=== PATIENT | male | born 1965 | race Caucasian/White ===

== ENCOUNTER → 2018-03-08 13:11 | Outpatient (POV) | payer BC, SELFPAY ==
[2018-03-08 13:28] VITALS: BP 130/85; PULSE 77; RESP 18; O2SAT 95
--- NOTE | 2018-03-09 09:51 | HMH.PMCON ---
Assessment and Plan (1) Sacroiliitis Current visit: Yes Status: Chronic Category: Medical Code(s): M46.1 - Sacroiliitis, not elsewhere classified (2) Bursitis Current visit: Yes Status: Chronic Qualifiers: Bursitis location: hip Hip bursitis location: trochanteric bursitis Laterality: right Qualified Code(s): M70.61 - Trochanteric bursitis, right hip Category: Medical Code(s): M71.9 - Bursopathy, unspecified - Assessment and plan all Dx Assessment and Plan for all problems:: Schedule right SI joint injection and right greater trochanteric bursa injection for the patient. I believe given his symptomology this would be very beneficial. Patient's tried and failed physical therapy, chiropractic therapy, anti-inflammatories, medications. Patient is not on any anticoagulation therapy. We will follow-up with the patient after his injection and reassess his symptoms at that time. This note was dictated using voice recognition software and may contain errors or omissions HPI - Data of Consult Consult date: 03/09/18 Requesting Physician: Tsering Ng APRN Primary Care Provider: Ede Bone MD Family Provider: Ede Bone MD - Consult Narrative Reason for consult: Generalized pain History of present illness: Mr. Pearson is a 52 year old male who presents today for consultation in regards to his right hip pain. Patient states that all activity increases his pain while rest, heat, ice decreases his pain. Patient does have right hip numbness that spreads into his mid calf. Patient's tried and failed [place], naproxen, Tylenol, TENS therapy. Patient does go to chiropractor that seems to help him. Patient has had issues with his right hip since 2006 when he was hit with a sledgehammer during work. Patient has had neck surgery in the past by Dr. Grier however his neck pain is not as bad as his right hip pain. Patient rates his pain a 7 out of 10 today. CC: Tsering Ng APRN [facility] History I have reviewed the patient's past medical history: Yes Medical History: Reports:: Chronic Obstructive Pulmonary Disease (COPD), Hypertension Other Medical History: Reports: Arthritis - *Social History Smoking Status: Current every day smoker Tobacco Type: cigarettes # Packs/Day (cigarettes): 1 Alcohol Intake: current Occupational Status: other Housing: house Household Members: other - Psychiatric History Expresses thoughts of harming self/others: None Suicide Plan Description: No Plan *Family Hx:: Unable to obtain Review of Systems - Review of Systems ROS General: no recent weight change, no fever, no sleep disturbances Respiratory: no cough, no shortness of air, no recurring pulmonary infections Cardiovascular/Peripheral Vascular: No chest pain, No palpitations, no edema, no shortness of breath. Gastrointestinal: no incontinence, normal bowel movements reported Genitourinary: no incontinence Musculoskeletal: Right SI joint pain, right greater trochanteric bursa tenderness Psychiatric: normal mood/ affect Neurological: [denies weakness in extremities], [denies balance issues] Meds Home Medications Medication Instructions Recorded Confirmed Type albuterol sulfate HFA 90 2 puff INHALATION Q4-6H PRN 02/22/18 History mcg/actuation aerosol inhaler bupropion HCl XL 300 mg 24 hr 300 mg PO QAM 02/22/18 History tablet, extended release fluticasone 50 mcg/actuation nasal 2 spray INTRANASAL DAILY g 02/22/18 History spray,suspension hydrochlorothiazide 25 mg tablet 25 mg PO QAM 02/22/18 History meloxicam 15 mg tablet 15 mg PO DAILY PRN tab 02/22/18 History montelukast 10 mg tablet 10 mg PO QPM 02/22/18 History tamsulosin 0.4 mg capsule 0.4 mg PO DAILY cap 02/22/18 History Allergies Allergy/AdvReac Type Severity Reaction Status Date / Time No Known Allergies Allergy Unverified 08/25/17 15:24 Objective Vital signs: Pulse Resp BP P
--- NOTE | 2018-03-09 10:26 | P.CONS_ITS ---
Assessment and Plan (1) Sacroiliitis Current visit: Yes Status: Chronic Category: Medical Code(s): M46.1 - Sacroiliitis, not elsewhere classified (2) Bursitis Current visit: Yes Status: Chronic Qualifiers: Bursitis location: hip Hip bursitis location: trochanteric bursitis Laterality: right Qualified Code(s): M70.61 - Trochanteric bursitis, right hip Category: Medical Code(s): M71.9 - Bursopathy, unspecified - Assessment and plan all Dx Assessment and Plan for all problems:: Schedule right SI joint injection and right greater trochanteric bursa injection for the patient. I believe given his symptomology this would be very beneficial. Patient's tried and failed physical therapy, chiropractic therapy, anti-inflammatories, medications. Patient is not on any anticoagulation therapy. We will follow-up with the patient after his injection and reassess his symptoms at that time. This note was dictated using voice recognition software and may contain errors or omissions HPI - Data of Consult Consult date: 03/09/18 Requesting Physician: Tsering Ng APRN Primary Care Provider: Ede Bone MD Family Provider: Ede Bone MD - Consult Narrative Reason for consult: Generalized pain History of present illness: Mr. Pearson is a 52 year old male who presents today for consultation in regards to his right hip pain. Patient states that all activity increases his pain while rest, heat, ice decreases his pain. Patient does have right hip numbness that spreads into his mid calf. Patient's tried and failed [place], naproxen, Tylenol, TENS therapy. Patient does go to chiropractor that seems to help him. Patient has had issues with his right hip since 2006 when he was hit with a sledgehammer during work. Patient has had neck surgery in the past by Dr. Grier however his neck pain is not as bad as his right hip pain. Patient rates his pain a 7 out of 10 today. CC: Tsering Ng APRN [facility] History I have reviewed the patient's past medical history: Yes Medical History: Reports:: Chronic Obstructive Pulmonary Disease (COPD), Hypertension Other Medical History: Reports: Arthritis - *Social History Smoking Status: Current every day smoker Tobacco Type: cigarettes # Packs/Day (cigarettes): 1 Alcohol Intake: current Occupational Status: other Housing: house Household Members: other - Psychiatric History Expresses thoughts of harming self/others: None Suicide Plan Description: No Plan *Family Hx:: Unable to obtain Review of Systems - Review of Systems ROS General: no recent weight change, no fever, no sleep disturbances Respiratory: no cough, no shortness of air, no recurring pulmonary infections Cardiovascular/Peripheral Vascular: No chest pain, No palpitations, no edema, no shortness of breath. Gastrointestinal: no incontinence, normal bowel movements reported Genitourinary: no incontinence Musculoskeletal: Right SI joint pain, right greater trochanteric bursa tenderness Psychiatric: normal mood/ affect Neurological: [denies weakness in extremities], [denies balance issues] Meds Home Medications Medication Instructions Recorded Confirmed Type albuterol sulfate HFA 90 2 puff INHALATION Q4-6H PRN 02/22/18 History mcg/actuation aerosol inhaler bupropion HCl XL 300 mg 24 hr 300 mg PO QAM 02/22/18 History tablet, extended release fluticasone 50 mcg/actuation nasal 2 spray INTRANASAL DENIS
== END ==
PROVIDERS: Family Provider Internal Medicine Adolescent Medicine; PCP Internal Medicine Adolescent Medicine; Visit Provider Clinical Nurse Specialist Family Health
DX: M46.1 Sacroiliitis, not elsewhere classified (principal); M70.61 Trochanteric bursitis, right hip
CPT/HCPCS: 99202

== ENCOUNTER → 2018-03-09 12:23 | Outpatient (CLI) | payer BC, SELFPAY ==
--- NOTE | 2018-03-09 12:59 | CT_ITS ---
CT chest w con HISTORY: Follow-up left-sided pulmonary nodule ITS.REASON: PULMONARY NODULE ORDERING PHYSICIAN: Ede Bone MD PATIENT AGE: 52 years COMPARISON: 08/18/2017 TECHNIQUE: Axial images obtained following the administration of 75 mL of Isovue 370 . Sagittal, and coronal reformatted images are also generated and reviewed. All CT scans at the facility use one or more dose reduction, viz: automated exposure control; ma/kV adjustment per patient size (including targeted exams where dose is matched to indication; i.e. head); or iterative reconstruction technique. FINDINGS: There are scattered small mediastinal and hilar lymph nodes many of which contain calcification. Normal heart size. No evidence of pericardial effusion. There are biapical areas of fibrosis. There is a noncalcified 4 mm nodule in the left apex unchanged. Centrilobular emphysematous changes are noted in the lung there is a 6 mm nodule in the right lung base. The nodule appears very slightly more apparent than when compared to the axial images at 08/18/2017 however the reformatted images show similar appearance of the nodule. This could be related to some slight difference in slice orientation. Continued follow-up is recommended. Scattered calcified nodules are present bilaterally. No new nodules are apparent. Abdominal images show a hepatic cyst at the gallbladder fossa at 1 cm. There is a small umbilical hernia containing fat. IMPRESSION: 1. Right lower lobe nodule once again noted measuring approximately 6 mm probably unchanged. The nodule on the axial axial image appears slightly more prominent but may be due to slice orientation. Continued follow-up recommended. 2. No change left upper lobe nodule. 3. Old granulomatous disease with centrilobular and paraseptal emphysematous changes
[2018-03-09 13:55] LABS: Alanine Aminotransferase 20 U/L (12-78); Albumin Level 4.2 gm/dL (3.4-5.0); Albumin/Globulin Ratio 1.4 (1.1-1.8); Alkaline Phosphatase 88 U/L (46-116); Anion Gap 15.9 mEq/L (5-15); Aspartate Amino Transferase 23 U/L (15-37); Bilirubin,Total 0.7 mg/dL (0.2-1.0); Blood Urea Nitrogen 4 mg/dL (7-18); Calcium 8.6 mg/dL (8.5-10.1); Carbon Dioxide 26 mmol/L (21.0-32.0); Chloride 96 mmol/L (98-107); Creatinine,Serum 0.82 mg/dL (0.70-1.30); Estimated Glomerular Filt Rate 98 ml/min (>60); GFR (African American) 118 ML/MIN (>60); Glucose 79 mg/dL (74-106); Potassium 4.9 mmoL/L (3.5-5.1); Sodium 133 mmol/L (136-145); Total Protein,Serum 7.2 gm/dL (6.4-8.2)
== END ==
PROVIDERS: Family Provider Internal Medicine Adolescent Medicine; PCP Internal Medicine Adolescent Medicine; Visit Provider Internal Medicine Adolescent Medicine
DX: R91.1 Solitary pulmonary nodule (principal); E87.1 Hypo-osmolality and hyponatremia
CPT/HCPCS: 36415; 71260; 80053; Q9967

== ENCOUNTER → 2018-04-27 11:38 | Outpatient (POV) | payer BC, SELFPAY ==
[2018-04-27 11:54] VITALS: BP 181/98; PULSE 91; RESP 18; O2SAT 98; BMI 20.2
--- NOTE | 2018-04-27 12:13 | HMH.PAINSOAP ---
[facility] Pain Management SOAP Note Subjective:: Patient is a pleasant 52-year-old white male who presents today for follow-up after right SI right greater trochanteric bursa injections. Patient states his pain is a 3 out of 10 today. He is doing much better he states he is much more functional and is able to stand up straight and walk. Patient has been having trouble with his right hip since 2006 when he was hit with a sledgehammer during work. Patient's tried and failed physical therapy along with medications. Patient is interested in repeating this injection in the future. ROS General: no recent weight change, no fever, no sleep disturbances Respiratory: no cough, no shortness of air, no recurring pulmonary infections Cardiovascular/Peripheral Vascular: No chest pain, No palpitations, no edema, no shortness of breath. Gastrointestinal: no incontinence, normal bowel movements reported Genitourinary: no incontinence Musculoskeletal: Right hip pain Psychiatric: normal mood/ affect Neurological: [denies weakness in extremities], [denies balance issues] Objective:: Physical Exam General: Alert and oriented x3, no acute distress, pleasant and cooperative, [on room air] Lungs: Resps E/U, Symmetrical chest expansion, Eyes: PERRL Musculoskeletal: Flexion and extension of lumbar spine somewhat guarded secondary to pain, deep tendon reflexes normal, strength in upper and lower extremities [5/5], [abnormal gait noted], tenderness over right greater trochanteric bursa, tenderness over right SI joint, positive Franklin's test on the right side Neurological: speech clear, intellectual property paralegal equal, no gross sensory deficits Assessment:: Sacroiliitis, bursitis Plan:: We will schedule another greater trochanteric bursa injection on the right side along with another right SI joint injection given the efficacy of the last round. We will do this in several weeks. I will follow-up with the patient after his injection. This note was dictated using voice recognition software and may contain errors or omissions
== END ==
PROVIDERS: Family Provider Internal Medicine Adolescent Medicine; PCP Internal Medicine Adolescent Medicine; Visit Provider Clinical Nurse Specialist Family Health
DX: M46.1 Sacroiliitis, not elsewhere classified (principal); M71.9 Bursopathy, unspecified
CPT/HCPCS: 99213

== ENCOUNTER → 2019-05-03 12:43 | Outpatient (CLI) | payer BC, SELFPAY ==
--- NOTE | 2019-05-03 14:46 | CT_ITS ---
PROCEDURE: CT LUNG SCREENING CLINICAL INDICATION: TOBACCO USE Forty pack-year smoking history, asymptomatic for lung cancer COMPARISON: CHW CT CHEST W/ CONTRAST from 08/18/[address] chest w con from 03/09/2018 TECHNIQUE: The exam was performed on a GE Light Speed [address] scanner using 2.90 mGy CTDI. A low dose helical CT CHEST was performed on a multi-detector scanner. All CT scans at the facility use one or more dose reduction, viz: automated exposure control, ma/kV adjustment per patient size (including targeted exams where dose is matched to indication, i.e. head), or iterative reconstruction technique. The LDCT was performed in a facility that meets the criteria for the screening program. Data regarding this exam was submitted to ACR which is an approved registry. The order for this exam indicates that it came as a result of a lung cancer screening counseling shard decision-making visit that included all the elements required of such a visit including smoking cessation. The radiologist interpreting this exam meets the CMS criteria for the LDCT lung cancer screening program. The exam is reported using the Lung-RADS classification scale and reported to the ACR registry. NOTE: This study was performed for the specific purposes of lung cancer screening and is not an alternative to diagnostic chest CT. RADIATION DOSE: CTDI vol(CT dose Index-volume) = 2.90mG DLP (Dose Length Product) = 114.11 mGcm FINDINGS: COPD. Scattered scarring. Old granulomatous disease. Fibrotic changes in the right middle lobe inferiorly which has developed compared to the previous exam 6 mm nodule extreme right lung base unchanged. Scattered fibrotic areas in the lingula and left lower lobe. 5 mm nodule left apex unchanged OTHER FINDINGS: Scattered small nodes in the mediastinum stable some of which are calcified. Minimal thickening of the pericardium. Small hiatal hernia IMPRESSION: Lung rads category 2 benign findings. No significant change Recommend 12 month LDCT Dictated by: Manuel Arteaga MD 05/08/2019 12:49 Signed by: <Electronically signed by Manuel Arteaga MD in OV> 05/08/2019 12:49
[2019-05-03 15:06] VITALS: PULSE 90; PULSE 96
== END ==
PROVIDERS: PCP Internal Medicine Adolescent Medicine; Visit Provider Internal Medicine Adolescent Medicine
DX: J43.1 Panlobular emphysema (principal); R06.09 Other forms of dyspnea; Z87.891 Personal history of nicotine dependence; Z12.2 Encounter for screening for malignant neoplasm of respiratory organs
CPT/HCPCS: 94060; 94640; 94726; 94729

== ENCOUNTER → 2021-04-25 08:00 | Outpatient (CLI) | payer MEDICARE, SELFPAY ==
[2021-04-26 08:40] LABS: Chloride 100 mmol/L (98-107); Potassium 4.1 mmoL/L (3.5-5.1); Sodium 134 mmol/L (136-145)
[2021-04-26 08:42] LABS: Alanine Aminotransferase 13 U/L (12-78); Anion Gap 13.1 mEq/L (5-15); Aspartate Amino Transferase 24 U/L (17-59); Blood Urea Nitrogen 11 mg/dl (9-20); Carbon Dioxide 25 mmol/L (22.0-30.0); Estimated Glomerular Filt Rate 116 ml/min (>60); GFR (African American) 141 ML/MIN (>60)
[2021-04-26 08:43] LABS: Albumin/Globulin Ratio 1.6 (1.1-1.8); Alkaline Phosphatase 85 U/L (38-126); Bilirubin,Total 0.2 mg/dl (0.2-1.3); Calcium 8.7 mg/dl (8.4-10.2); Chol/HDL Ratio 2.3 (1-3.5); Cholesterol 153 mg/dl (140-200); Globulin 2.5 g/dL (1.3-3.2); Glucose 109 mg/dl (74-100); HDL Cholesterol 68 mg/dl (40-60); Total Protein,Serum 6.5 g/dl (6.3-8.2); Triglycerides 102 mg/dl (30-150); VLDL Cholesterol 20 mg/dL (0-40)
[2021-04-26 08:44] LABS: Basophils # 0.1 K/mm3 (0-0.2); Basophils % 0.8 % (0.1-2.0); Eosinophils # 0.2 K/mm3 (0.0-0.4); Eosinophils % 1.1 % (0.1-12.0); Hematocrit 47.1 % (42.0-52.0); Hemoglobin 15.4 g/dL (14.1-18.0); Lymphocytes # 3.9 K/mm3 (0.7-4.5); Lymphocytes % 28.6 % (10-50); Mean Corpuscular HGB Conc 32.7 g/dL (31.8-35.4); Mean Corpuscular Hemoglobin 32.9 pg (27.0-31.2); Mean Corpuscular Volume 100.6 fl (80-94); Monocytes # 0.8 K/mm3 (0.1-1.0); Monocytes % 5.7 % (1.7-9.3); Neutrophils # 8.8 K/mm3 (1.8-7.8); Neutrophils % 63.9 % (37.0-80.0); Platelet Count 460 K/mm3 (142-424); Red Blood Count 4.69 M/mm3 (4.60-6.20); Red Cell Distribution Width 14.8 % (11.5-17.5); White Blood Count 13.8 K/mm3 (4.8-10.8)
[2021-04-26 08:54] LABS: Direct LDL Cholesterol 75.77 mg/dL (100-129)
== END ==
PROVIDERS: Visit Provider Internal Medicine Adolescent Medicine
DX: I10 Essential (primary) hypertension (principal); E78.5 Hyperlipidemia, unspecified
CPT/HCPCS: 80053; 80061; 85025

== ENCOUNTER → 2022-01-29 13:48 | Outpatient (CLI) | payer MEDICARE, SELFPAY ==
--- NOTE | 2022-01-29 14:11 | XR_ITS ---
FINAL REPORT CLINICAL HISTORY: . cat bite; second digit is swollen and red FINDINGS: AP, lateral and oblique views of the right hand were obtained. There is no prior exam for comparison. There is no acute fracture or dislocation. There is multi joint degenerative disease which is most pronounced at the 2nd and 3rd MCP joints. No bony erosions are identified. There is diffuse soft tissue edema of the 2nd digit. IMPRESSION: 1. No acute osseous abnormality of the right hand. 2. Diffuse soft tissue edema of the 2nd digit. Reviewed, Interpreted and Dictated by Ban Lucas MD Transcribed by Nohemi De La Torre Authenticated by Ban Lucas MD on 01/29/2022 04:56:31 PM [facility]
[2022-01-29 14:24] LABS: Basophils # 0.1 K/mm3 (0-0.2); Basophils % 0.4 % (0.1-2.0); Eosinophils # 0.1 K/mm3 (0.0-0.4); Eosinophils % 0.6 % (0.1-12.0); Hematocrit 48.9 % (42.0-52.0); Lymphocytes # 2.5 K/mm3 (0.7-4.5); Lymphocytes % 14.9 % (10-50); Mean Corpuscular HGB Conc 32.7 g/dL (31.8-35.4); Mean Corpuscular Hemoglobin 32.8 pg (27.0-31.2); Mean Corpuscular Volume 100.3 fl (80-94); Mean Platelet Volume 8.2 fl (7.4-10.4); Monocytes # 0.9 K/mm3 (0.1-1.0); Monocytes % 5.3 % (1.7-9.3); Neutrophils # 13.2 K/mm3 (1.8-7.8); Neutrophils % 78.8 % (37.0-80.0); Platelet Count 347 K/mm3 (142-424); Red Blood Count 4.88 M/mm3 (4.60-6.20); Red Cell Distribution Width 13.9 % (11.5-17.5); White Blood Count 16.8 K/mm3 (4.8-10.8)
[2022-01-29 14:26] LABS: MANUAL DIFFERENTIAL MANUAL DIFFERENTIAL (MANUAL DIFF)
[2022-01-29 14:31] LABS: Lymphocytes % 8 % (10-50); Monocytes % 5 % (2-9); Neutrophils % 87 % (42-76); Total Cells Counted 100
[2022-01-29 14:32] LABS: Anisocytosis 1+; Macrocytosis 1+; Platelet Estimate Normal
[2022-01-29 15:12] LABS: Chloride 93 mmol/L (98-107)
[2022-01-29 15:13] LABS: Potassium 4.1 mmoL/L (3.5-5.1); Sodium 125 mmol/L (136-145)
[2022-01-29 15:15] LABS: Blood Urea Nitrogen 6 mg/dl (9-20); Estimated Glomerular Filt Rate 138 ml/min (>60); GFR (African American) 167 ML/MIN (>60)
[2022-01-29 15:16] LABS: Alanine Aminotransferase 16 U/L (12-78); Albumin/Globulin Ratio 1.5 (1.1-1.8); Alkaline Phosphatase 123 U/L (38-126); Anion Gap 14.1 mEq/L (5-15); Aspartate Amino Transferase 25 U/L (17-59); Bilirubin,Total 0.7 mg/dl (0.2-1.3); Calcium 8.9 mg/dl (8.4-10.2); Carbon Dioxide 22 mmol/L (22.0-30.0); Globulin 2.7 g/dL (1.3-3.2); Glucose 95 mg/dl (74-100); Total Protein,Serum 6.7 g/dl (6.3-8.2)
[2022-01-29 15:22] LABS: C-Reactive Protein 93.9 mg/L (0-4)
[2022-01-29 15:27] LABS: Erythrocyte Sedimentation Rate 7 mm/hr (0-20)
== END ==
PROVIDERS: PCP Nurse Practitioner Family; Visit Provider Nurse Practitioner Family
DX: S61.258A Open bite of other finger without damage to nail, initial encounter (principal); L03.011 Cellulitis of right finger; W55.01XA Bitten by cat, initial encounter
CPT/HCPCS: 36415; 73130; 80053; 85007; 85025; 85651; 86140

== ENCOUNTER → 2022-02-25 11:43 | Outpatient (CLI) | payer MEDICARE, SELFPAY ==
[2022-02-25 14:24] LABS: Chloride 94 mmol/L (98-107); Potassium 3.6 mmoL/L (3.5-5.1); Sodium 130 mmol/L (136-145)
[2022-02-25 14:26] LABS: Basophils # 0.1 K/mm3 (0-0.2); Basophils % 0.6 % (0.1-2.0); Blood Urea Nitrogen 3 mg/dl (9-20); Eosinophils # 0.2 K/mm3 (0.0-0.4); Eosinophils % 2.1 % (0.1-12.0); Estimated Glomerular Filt Rate 221 ml/min (>60); GFR (African American) 267 ML/MIN (>60); Hematocrit 40.4 % (42.0-52.0); Hemoglobin 13.6 g/dL (14.1-18.0); Lymphocytes # 1.3 K/mm3 (0.7-4.5); Lymphocytes % 16.4 % (10-50); Mean Corpuscular HGB Conc 33.7 g/dL (31.8-35.4); Mean Corpuscular Hemoglobin 32.6 pg (27.0-31.2); Mean Corpuscular Volume 96.8 fl (80-94); Mean Platelet Volume 11.2 fl (7.4-10.4); Monocytes # 0.6 K/mm3 (0.1-1.0); Neutrophils # 5.8 K/mm3 (1.8-7.8); Platelet Count 444 K/mm3 (142-424); Red Blood Count 4.18 M/mm3 (4.60-6.20); Red Cell Distribution Width 14.1 % (11.5-17.5)
[2022-02-25 14:27] LABS: Alanine Aminotransferase 12 U/L (12-78); Albumin Level 3.3 g/dl (3.5-5.0); Albumin/Globulin Ratio 1.2 (1.1-1.8); Alkaline Phosphatase 70 U/L (38-126); Anion Gap 12.6 mEq/L (5-15); Aspartate Amino Transferase 28 U/L (17-59); Bilirubin,Direct 0.4 mg/dl (0.0-0.4); Bilirubin,Total 0.4 mg/dl (0.2-1.3); Calcium 8.4 mg/dl (8.4-10.2); Carbon Dioxide 27 mmol/L (22.0-30.0); Globulin 2.7 g/dL (1.3-3.2); Glucose 94 mg/dl (74-100)
[2022-02-25 14:33] LABS: C-Reactive Protein 43.9 mg/L (0-4)
== END ==
PROVIDERS: Visit Provider Internal Medicine Infectious Disease
DX: S61.25 Open bite of finger without damage to nail (principal); L03.011 Cellulitis of right finger; W55.01XD Bitten by cat, subsequent encounter
CPT/HCPCS: 80053; 82248; 85025; 86140

== ENCOUNTER → 2022-03-11 11:00 | Outpatient (CLI) | payer MEDICARE, SELFPAY ==
[2022-03-11 14:21] LABS: Basophils # 0.1 K/mm3 (0-0.2); Basophils % 0.7 % (0.1-2.0); Eosinophils # 0.2 K/mm3 (0.0-0.4); Eosinophils % 1.9 % (0.1-12.0); Hematocrit 39.3 % (42.0-52.0); Hemoglobin 13.4 g/dL (14.1-18.0); Lymphocytes % 30.4 % (10-50); Mean Corpuscular Hemoglobin 31.3 pg (27.0-31.2); Mean Corpuscular Volume 91.9 fl (80-94); Mean Platelet Volume 9.4 fl (7.4-10.4); Monocytes # 0.6 K/mm3 (0.1-1.0); Monocytes % 5.8 % (1.7-9.3); Neutrophils # 6.1 K/mm3 (1.8-7.8); Neutrophils % 61.2 % (37.0-80.0); Platelet Count 429 K/mm3 (142-424); Red Blood Count 4.28 M/mm3 (4.60-6.20); Red Cell Distribution Width 13.8 % (11.5-17.5)
[2022-03-11 14:27] LABS: Alanine Aminotransferase 12 U/L (12-78); Albumin Level 3.2 g/dl (3.5-5.0); Alkaline Phosphatase 81 U/L (38-126); Anion Gap 8.1 mEq/L (5-15); Aspartate Amino Transferase 28 U/L (17-59); Bilirubin,Indirect 0.3 mg/dL (0.0-0.9); Bilirubin,Total 0.3 mg/dl (0.2-1.3); Blood Urea Nitrogen 7 mg/dl (9-20); Calcium 8.5 mg/dl (8.4-10.2); Carbon Dioxide 28 mmol/L (22.0-30.0); Chloride 100 mmol/L (98-107); Creatine Kinase 35 U/L (55-170); Estimated Glomerular Filt Rate 171 ml/min (>60); GFR (African American) 207 ML/MIN (>60); Globulin 3.1 g/dL (1.3-3.2); Glucose 92 mg/dl (74-100); Potassium 4.1 mmoL/L (3.5-5.1); Sodium 132 mmol/L (136-145); Total Protein,Serum 6.3 g/dl (6.3-8.2)
[2022-03-11 14:33] LABS: C-Reactive Protein 4.6 mg/L (0-4)
== END ==
PROVIDERS: Visit Provider Internal Medicine Infectious Disease
DX: A41.9 Sepsis, unspecified organism (principal)
CPT/HCPCS: 80053; 82248; 82550; 85025; 86140

== ENCOUNTER → 2022-03-14 12:52 | Outpatient (CLI) | payer MEDICARE, SELFPAY ==
--- NOTE | 2022-03-14 12:57 | MR_ITS ---
FINAL REPORT CLINICAL HISTORY: ABSCESS, HAND. CAT BITE ON INDEX FINGER 2MONTHS AGO. REDDNESS AND SWELLING IN HAND AND FINGER. SURGERY FOR 2 MONTHS. 13ML PROHANCE GIVEN. FINDINGS: Multiplanar MR imaging of the right hand was performed without and with contrast. There is a 12 mm cyst or enchondroma involving the 3rd metacarpal head. There is abnormal T1 and T2 signal in the distal aspect of the 2nd proximal phalanx, proximal aspect of the 2nd middle phalanx with mild irregularity of the joint surfaces and fluid in the 2nd PIP joint. Findings are most worrisome for septic arthritis. There is 2nd digit edema or cellulitis extending into the palm. There is contrast enhancement of the 2nd proximal and middle phalanges adjacent to the PIP joint. IMPRESSION: Findings most worrisome for septic arthritis of the 2nd PIP joint. Second digit cellulitis or edema. Reviewed, Interpreted and Dictated by Garrett Faria III, MD Transcribed by Sarah Gregg Authenticated and . [facility]
== END ==
PROVIDERS: PCP Nurse Practitioner Family
DX: L02.511 Cutaneous abscess of right hand (principal); R22.31 Localized swelling, mass and lump, right upper limb
CPT/HCPCS: 73220; A9576

== ENCOUNTER → 2022-03-18 11:31 | Outpatient (CLI) | payer MEDICARE, SELFPAY ==
[2022-03-18 14:26] LABS: Basophils # 0.1 K/mm3 (0-0.2); Basophils % 0.7 % (0.1-2.0); Eosinophils # 0.2 K/mm3 (0.0-0.4); Hematocrit 49.5 % (42.0-52.0); Hemoglobin 15.4 g/dL (14.1-18.0); Lymphocytes # 2.8 K/mm3 (0.7-4.5); Lymphocytes % 33.3 % (10-50); Mean Corpuscular HGB Conc 31.1 g/dL (31.8-35.4); Mean Corpuscular Hemoglobin 31.1 pg (27.0-31.2); Mean Corpuscular Volume 100.2 fl (80-94); Mean Platelet Volume 10.3 fl (7.4-10.4); Monocytes # 0.6 K/mm3 (0.1-1.0); Neutrophils # 4.8 K/mm3 (1.8-7.8); Platelet Count 460 K/mm3 (142-424); Red Blood Count 4.94 M/mm3 (4.60-6.20); Red Cell Distribution Width 15.2 % (11.5-17.5); White Blood Count 8.4 K/mm3 (4.8-10.8)
[2022-03-18 14:28] LABS: Alanine Aminotransferase 16 U/L (12-78); Albumin Level 3.9 g/dl (3.5-5.0); Albumin/Globulin Ratio 1.1 (1.1-1.8); Alkaline Phosphatase 88 U/L (38-126); Anion Gap 10.3 mEq/L (5-15); Aspartate Amino Transferase 32 U/L (17-59); Bilirubin,Total 0.7 mg/dl (0.2-1.3); Blood Urea Nitrogen 10 mg/dl (9-20); Calcium 9.2 mg/dl (8.4-10.2); Carbon Dioxide 23 mmol/L (22.0-30.0); Chloride 104 mmol/L (98-107); Creatine Kinase 32 U/L (55-170); Estimated Glomerular Filt Rate 138 ml/min (>60); GFR (African American) 167 ML/MIN (>60); Globulin 3.4 g/dL (1.3-3.2); Glucose 92 mg/dl (74-100); Potassium 4.3 mmoL/L (3.5-5.1); Sodium 133 mmol/L (136-145); Total Protein,Serum 7.3 g/dl (6.3-8.2)
[2022-03-18 14:34] LABS: C-Reactive Protein 3.5 mg/L (0-4)
== END ==
PROVIDERS: Internal Medicine Infectious Disease
DX: A41.9 Sepsis, unspecified organism (principal)
CPT/HCPCS: 80053; 82550; 85025; 86140

== ENCOUNTER → 2022-03-25 11:08 | Outpatient (CLI) | payer MEDICARE, SELFPAY ==
[2022-03-25 14:55] LABS: Alanine Aminotransferase 12 U/L (12-78); Albumin Level 3.6 g/dl (3.5-5.0); Albumin/Globulin Ratio 1.3 (1.1-1.8); Alkaline Phosphatase 79 U/L (38-126); Anion Gap 13.6 mEq/L (5-15); Aspartate Amino Transferase 24 U/L (17-59); Bilirubin,Direct 0.1 mg/dl (0.0-0.4); Bilirubin,Total 0.3 mg/dl (0.2-1.3); Blood Urea Nitrogen 8 mg/dl (9-20); Calcium 8.7 mg/dl (8.4-10.2); Carbon Dioxide 22 mmol/L (22.0-30.0); Chloride 103 mmol/L (98-107); Creatine Kinase 40 U/L (55-170); Estimated Glomerular Filt Rate 138 ml/min (>60); GFR (African American) 167 ML/MIN (>60); Globulin 2.8 g/dL (1.3-3.2); Glucose 92 mg/dl (74-100); Potassium 4.6 mmoL/L (3.5-5.1); Sodium 134 mmol/L (136-145); Total Protein,Serum 6.4 g/dl (6.3-8.2)
[2022-03-25 15:00] LABS: Basophils # 0.1 K/mm3 (0-0.2); Basophils % 0.8 % (0.1-2.0); Eosinophils # 0.2 K/mm3 (0.0-0.4); Eosinophils % 1.6 % (0.1-12.0); Hematocrit 41.6 % (42.0-52.0); Hemoglobin 13.4 g/dL (14.1-18.0); Lymphocytes # 3.3 K/mm3 (0.7-4.5); Lymphocytes % 31.3 % (10-50); Mean Corpuscular HGB Conc 32.3 g/dL (31.8-35.4); Mean Corpuscular Hemoglobin 30.7 pg (27.0-31.2); Mean Corpuscular Volume 95.1 fl (80-94); Mean Platelet Volume 10.2 fl (7.4-10.4); Monocytes # 0.5 K/mm3 (0.1-1.0); Monocytes % 4.6 % (1.7-9.3); Neutrophils # 6.4 K/mm3 (1.8-7.8); Neutrophils % 61.7 % (37.0-80.0); Platelet Count 375 K/mm3 (142-424); Red Blood Count 4.37 M/mm3 (4.60-6.20); Red Cell Distribution Width 14.9 % (11.5-17.5); White Blood Count 10.4 K/mm3 (4.8-10.8)
== END ==
PROVIDERS: Visit Provider Internal Medicine Infectious Disease
DX: A41.9 Sepsis, unspecified organism (principal)
CPT/HCPCS: 80053; 82248; 82550; 85025

== ENCOUNTER → 2022-04-01 10:14 | Outpatient (CLI) | payer MEDICARE, SELFPAY ==
[2022-04-01 14:16] LABS: Basophils # 0.1 K/mm3 (0-0.2); Basophils % 0.5 % (0.1-2.0); Eosinophils # 0.3 K/mm3 (0.0-0.4); Hematocrit 40.4 % (42.0-52.0); Hemoglobin 13.5 g/dL (14.1-18.0); Lymphocytes # 3.5 K/mm3 (0.7-4.5); Lymphocytes % 28.3 % (10-50); Mean Corpuscular HGB Conc 33.4 g/dL (31.8-35.4); Mean Corpuscular Hemoglobin 31.3 pg (27.0-31.2); Mean Corpuscular Volume 93.7 fl (80-94); Mean Platelet Volume 9.8 fl (7.4-10.4); Monocytes # 0.4 K/mm3 (0.1-1.0); Monocytes % 3.1 % (1.7-9.3); Neutrophils # 8.1 K/mm3 (1.8-7.8); Platelet Count 425 K/mm3 (142-424); Red Blood Count 4.31 M/mm3 (4.60-6.20); Red Cell Distribution Width 14.8 % (11.5-17.5); White Blood Count 12.3 K/mm3 (4.8-10.8)
[2022-04-01 14:21] LABS: Alanine Aminotransferase 17 U/L (12-78); Albumin Level 3.4 g/dl (3.5-5.0); Albumin/Globulin Ratio 1.1 (1.1-1.8); Alkaline Phosphatase 131 U/L (38-126); Anion Gap 10.6 mEq/L (5-15); Aspartate Amino Transferase 31 U/L (17-59); Blood Urea Nitrogen 8 mg/dl (9-20); Calcium 8.5 mg/dl (8.4-10.2); Carbon Dioxide 24 mmol/L (22.0-30.0); Chloride 102 mmol/L (98-107); Creatine Kinase 36 U/L (55-170); Estimated Glomerular Filt Rate 171 ml/min (>60); GFR (African American) 207 ML/MIN (>60); Glucose 141 mg/dl (74-100); Potassium 3.6 mmoL/L (3.5-5.1); Sodium 133 mmol/L (136-145); Total Protein,Serum 6.4 g/dl (6.3-8.2)
[2022-04-01 14:26] LABS: C-Reactive Protein 5.3 mg/L (0-4)
[2022-04-01 14:27] LABS: Bilirubin,Total < 0.1 mg/dl (0.2-1.3)
[2022-04-01 18:04] LABS: Bilirubin,Direct 0.3 mg/dl (0.0-0.4)
== END ==
PROVIDERS: Visit Provider Internal Medicine Infectious Disease
DX: R22.32 Localized swelling, mass and lump, left upper limb (principal)
CPT/HCPCS: 80053; 82248; 82550; 85025; 86140

== ENCOUNTER → 2022-04-10 11:54 | Outpatient (CLI) | payer MEDICARE, SELFPAY ==
[2022-04-10 12:19] LABS: Basophils # 0.1 K/mm3 (0-0.2); Basophils % 0.9 % (0.1-2.0); Eosinophils # 0.2 K/mm3 (0.0-0.4); Eosinophils % 2.3 % (0.1-12.0); Hemoglobin 13.4 g/dL (14.1-18.0); Lymphocytes # 2.8 K/mm3 (0.7-4.5); Lymphocytes % 31.6 % (10-50); Mean Corpuscular HGB Conc 30.4 g/dL (31.8-35.4); Mean Corpuscular Volume 98.9 fl (80-94); Mean Platelet Volume 7.7 fl (7.4-10.4); Monocytes # 0.4 K/mm3 (0.1-1.0); Monocytes % 4.6 % (1.7-9.3); Neutrophils # 5.4 K/mm3 (1.8-7.8); Neutrophils % 60.7 % (37.0-80.0); Platelet Count 489 K/mm3 (142-424); Red Blood Count 4.45 M/mm3 (4.60-6.20); Red Cell Distribution Width 15.4 % (11.5-17.5); White Blood Count 8.9 K/mm3 (4.8-10.8)
[2022-04-10 13:18] LABS: Chloride 102 mmol/L (98-107); Potassium 4.6 mmoL/L (3.5-5.1); Sodium 135 mmol/L (136-145)
[2022-04-10 13:20] LABS: Blood Urea Nitrogen 6 mg/dl (9-20); Estimated Glomerular Filt Rate 171 ml/min (>60); GFR (African American) 207 ML/MIN (>60)
[2022-04-10 13:21] LABS: Alanine Aminotransferase 11 U/L (12-78); Albumin Level 3.6 g/dl (3.5-5.0); Albumin/Globulin Ratio 1.4 (1.1-1.8); Alkaline Phosphatase 116 U/L (38-126); Anion Gap 8.6 mEq/L (5-15); Aspartate Amino Transferase 23 U/L (17-59); Bilirubin,Total 0.2 mg/dl (0.2-1.3); Calcium 9.2 mg/dl (8.4-10.2); Carbon Dioxide 29 mmol/L (22.0-30.0); Globulin 2.6 g/dL (1.3-3.2); Glucose 122 mg/dl (74-100); Total Protein,Serum 6.2 g/dl (6.3-8.2)
[2022-04-10 13:26] LABS: C-Reactive Protein 7.2 mg/L (0-4)
== END ==
PROVIDERS: Internal Medicine Infectious Disease; PCP Internal Medicine Adolescent Medicine
DX: L02.511 Cutaneous abscess of right hand (principal)
CPT/HCPCS: 36415; 80053; 85025; 86140

== ENCOUNTER 2022-04-28 15:46 | Inpatient (IN) | payer MEDICARE, SELFPAY ==
[2022-04-28] VITALS (19 sets, daily range): BP systolic 107–167; BP diastolic 63–101; PULSE 85–106; RESP 12–20; TEMP 36.4–43; O2SAT 93–99; BMI 20.9; BMI 19.7
--- NOTE | 2022-04-28 15:58 | CT_ITS ---
PROCEDURE INFORMATION: Exam: CT Abdomen And Pelvis With Contrast Exam date and time: 04/28/2022 4:47 PM Age: 56 years old Clinical indication: Abdominal pain; Localized; Lower; Additional info: Abdom TECHNIQUE: Imaging protocol: Computed tomography of the abdomen and pelvis with contrast. Radiation optimization: All CT scans at this facility use at least one of these dose optimization techniques: automated exposure control; mA and/or kV adjustment per patient size (includes targeted exams where dose is matched to clinical indication); or iterative reconstruction. Contrast material: ISOVUE; Contrast volume: 75 ml; Contrast route: IV; COMPARISON: CT LUNG SCREENING 05/03/2019 3:03 PM FINDINGS: Lungs: Bibasilar emphysematous changes and calcified granulomata. Liver: Normal. No mass. Gallbladder and bile ducts: Normal. No calcified stones. No ductal dilation. Pancreas: Normal. No ductal dilation. Spleen: Multiple calcified splenic granulomata. Adrenal glands: Normal. No mass. Kidneys and ureters: Normal. No hydronephrosis. Stomach and bowel: Thickening of the gastric antrum pyloric channel and duodenal bulb. 2.5 cm ulcer in the anterior-cephalad aspect of the duodenal bulb. Appendix: No evidence of appendicitis. Intraperitoneal space: Free intraperitoneal air seen in the upper abdomen.,. Minor pelvic free fluid. Vasculature: Moderate atherosclerotic changes are seen within the abdominal aorta and branch vasculature without evidence of aneurysm. Lymph nodes: Unremarkable. No enlarged lymph nodes. Urinary bladder: Unremarkable as visualized. Reproductive: Unremarkable as visualized. Bones/joints: Moderate compression of the superior aspect of the L1 vertebral body which is new since 03/09/2018. No bony retropulsion. Soft tissues: Unremarkable. IMPRESSION: 1. Findings consistent with perforated duodenal ulcer. 2. Minor pelvic free fluid. 3. L1 vertebral body compression deformity new since 03/09/2018.
[2022-04-28 16:22] LABS: Basophils # 0.1 K/mm3 (0-0.2); Eosinophils # 0.2 K/mm3 (0.0-0.4); Eosinophils % 1.8 % (0.1-12.0); Hematocrit 46.9 % (42.0-52.0); Hemoglobin 14.3 g/dL (14.1-18.0); Lymphocytes # 2.6 K/mm3 (0.7-4.5); Lymphocytes % 22.5 % (10-50); Mean Corpuscular HGB Conc 30.4 g/dL (31.8-35.4); Mean Corpuscular Hemoglobin 30.6 pg (27.0-31.2); Mean Corpuscular Volume 100.5 fl (80-94); Mean Platelet Volume 8.2 fl (7.4-10.4); Monocytes # 0.4 K/mm3 (0.1-1.0); Neutrophils # 8.2 K/mm3 (1.8-7.8); Neutrophils % 71.7 % (37.0-80.0); Platelet Count 629 K/mm3 (142-424); Red Blood Count 4.67 M/mm3 (4.60-6.20); Red Cell Distribution Width 15.6 % (11.5-17.5); White Blood Count 11.4 K/mm3 (4.8-10.8)
[2022-04-28 16:35] LABS: Alanine Aminotransferase 11 U/L (12-78); Albumin Level 3.8 g/dl (3.5-5.0); Albumin/Globulin Ratio 1.3 (1.1-1.8); Alkaline Phosphatase 147 U/L (38-126); Anion Gap 10.4 mEq/L (5-15); Aspartate Amino Transferase 26 U/L (17-59); Bilirubin,Total 0.3 mg/dl (0.2-1.3); Blood Urea Nitrogen 7 mg/dl (9-20); Calcium 8.6 mg/dl (8.4-10.2); Carbon Dioxide 29 mmol/L (22.0-30.0); Chloride 102 mmol/L (98-107); Creatinine Clearance Estimated 160 mL/min (50-200); Estimated Glomerular Filt Rate 171 ml/min (>60); GFR (African American) 207 ML/MIN (>60); Glucose 112 mg/dl (74-100); Potassium 4.4 mmoL/L (3.5-5.1); Sodium 137 mmol/L (136-145); Total Protein,Serum 6.8 g/dl (6.3-8.2)
--- NOTE | 2022-04-28 17:09 | PC.NURSE ---
pt reports his pain is back and severe, December, RN aware and has told ER
--- NOTE | 2022-04-28 17:17 | PC.NURSE ---
YAHAIRA called and is speaking with our ER MD at this time
--- NOTE | 2022-04-28 17:19 | PC.NURSE ---
LEO SORTO speaking with dr. brewster
--- NOTE | 2022-04-28 17:22 | PC.NURSE ---
shanon fry ER MD
--- NOTE | 2022-04-28 17:22 | PC.NURSE ---
karuna lackey speaking with dr. acosta who is automotive fuel injection servicer for dr. rosario
[2022-04-28 17:23] LABS: Lipase 221 U/L (23-300)
--- NOTE | 2022-04-28 17:40 | PC.NURSE ---
1735: Spoke with Dr. Read and he notified me that he would like the OR team notified of pending surgery. 1739: Spoke with Mary Carmen Hernandez CRNA and notified of surgery 1740: Spoke with Dayday Mesa RN and notified of surgery 174: Spoke with Sheri, Surg. tech. and notified of surgery. 1743: Spoke with Yuni Greenfield ED RN to notify her that surgery team had been notified of surgery and would be here soon.
--- NOTE | 2022-04-28 17:43 | PC.NURSE ---
per housekeeper cleaning cooking dr. brewster has requested she call in OR team
--- NOTE | 2022-04-28 17:53 | PC.NURSE ---
Dr. Read at the bedside to see pt
[2022-04-28 18:02] LABS: Coronavirus 19, PCR Not Detected (NotDetected); Influenza A, PCR Not Detected (NotDetected); Influenza B, PCR Not Detected (NotDetected)
--- NOTE | 2022-04-28 18:04 | HMH.GSCON ---
*Admission Date: 04/28/22 *Reason for consult:: Abdominal pain *History of present illness: Patient is a 56-year-old smoker with COPD from [place]. He states that when he woke up this afternoon at approximately 1 PM he was noted to have severe abdominal pain. This was mostly in the upper abdomen with some radiation to his shoulder. It moved around and migrated somewhat. He presented to the emergency department at [facility]. He was found to have findings of significant pain which was difficult to control and acute abdomen. He underwent work-up including CT scan which revealed findings consistent with perforated duodenal ulcer. Patient has no known ulcer history. He does have symptoms of GERD and reflux. He states that he drinks daily. Review of Systems - Review of Systems Review of systems:: pertinent systems reviewed and negative unless documented below [facility] History I have reviewed the patient's past medical history: Yes Medical History: Reports:: Chronic Obstructive Pulmonary Disease (COPD), Hypertension Denies:: Cancer, Diabetes Mellitus Type 1, Diabetes Mellitus Type 2, Internal Pacemaker, MRSA, Seizures *Have you ever received a pneumonia vaccine?: Yes *Have you received a flu vaccine this season?: Yes Other Medical History: Reports: Arthritis Other Surgeries: No: Pacemaker Amputation: No Fractures: No - *Social History Smoking Status: Current every day smoker Tobacco Type: cigarettes # Packs/Day (cigarettes): 1 Alcohol Intake: never *Occupational Status:: other Housing: house Household Members: spouse *Travel in the last 8 weeks: None Family Hx:: Diabetes, Hypertension Meds Home Medications Medication Instructions Recorded Confirmed Type albuterol sulfate 90 mcg/actuation 2 puff INHALATION Q4-6H PRN 02/22/18 06/04/18 History aerosol inhaler bupropion HCl 300 mg 24 hr tablet, 300 mg PO QAM 02/22/18 06/04/18 History extended release fluticasone propionate 50 2 spray INTRANASAL DAILY g 02/22/18 06/04/18 History mcg/actuation nasal spray,suspension hydrochlorothiazide 25 mg tablet 25 mg PO QAM 02/22/18 06/04/18 History meloxicam 15 mg tablet 15 mg PO DAILY PRN tab 02/22/18 06/04/18 History montelukast 10 mg tablet 10 mg PO QPM 02/22/18 06/04/18 History tamsulosin 0.4 mg capsule 0.4 mg PO DAILY cap 02/22/18 06/04/18 History Allergies Allergy/AdvReac Type Severity Reaction Status Date / Time No Known Allergies Allergy Unverified 08/25/17 15:24 Exam Vital signs and Labs for Last 24 Hours: Temp Pulse Resp BP Pulse Ox 98.2 F 98 H 18 139/81 94 L 04/28/22 15:46 04/28/22 17:19 04/28/22 17:19 04/28/22 17:19 04/28/22 17:19 Laboratory Results - last 24 hr 04/28/22 16:00: WBC 11.4 H, RBC 4.67, Hgb 14.3, Hct 46.9, MCV 100.5 H, MCH 30.6, MCHC 30.4 L, RDW 15.6, Plt Count 629 H, MPV 8.2, Neut % (Auto) 71.7, Lymph % (Auto) 22.5, [place] % (Auto) 3.0, Eos % (Auto) 1.8, Baso % (Auto) 1.0, Neut # (Auto) 8.2 H, Lymph # (Auto) 2.6, [place] # (Auto) 0.4, Eos # (Auto) 0.2, Baso # (Auto) 0.1 04/28/22 16:00: Sodium 137, Potassium 4.4, Chloride 102, Carbon Dioxide 29, Anion Gap 10.4, BUN 7 L, Creatinine 0.50 L, Estimated Creat Clear 160, Estimated GFR 171, Est GFR ( Amer) 207, Glucose 112 H, Calcium 8.6, Total Bilirubin 0.3, AST 26, ALT 11 L, Alkaline Phosphatase 147 H, Total Protein 6.8, Albumin 3.8, Globulin 3.0, Albumin/Globulin Ratio 1.3 04/28/22 16:00: Lipase 221 I & O for Last 24 hours: Intake & Output 04/26/22 04/27/22 04/28/22 04/29/22 11:59 11:59 11:59 11:59 Weight 155 lb - Constitutional moderate distress, thin, chronically ill appearing - *Routine Respiratory Exam Present: decreased breath sounds - *Routine Cardiovascular Exam Present: tachycardia - *Routine Abdominal Exam Present: soft, tenderness, rebound, guarding. Absent: distended Results - Labs 04/28/22 16:00 08/22/22 16:00 Laboratory Results - last 24 hr 04/28/22 16:00
--- NOTE | 2022-04-28 18:10 | PC.NURSE ---
preop checklists completed and ready for surgery team
--- NOTE | 2022-04-28 18:30 | PC.NURSE ---
pt taken to surgery with surgery team
--- NOTE | 2022-04-28 18:33 | HMH.EDABDPAI ---
ED Disposition Clinical Impression: Perforated abdominal viscus Disposition: Admitted As Inpatient Condition on Discharge: Fair - Critical Care Critical Care Time: No Attestation: On 04/28/22, the high probability of a clinically significant, sudden or life threatening deterioration of the following system(s) required my full and direct attention, intervention and personal management. The time I documented below is in addition to time spent performing reported procedures but includes the following listed in this critical care notation. Medical Decision Making - Medical Records Medical records reviewed: Yes: I reviewed the patient's medical records. - Chris Inquiry Pt receiving controlled substance: Yes Chris was queried for this patient: Yes Risks and benefits of using a controlled substance: were discussed with pt by me Vital Signs: 04/28/22 15:46 04/28/22 17:19 Temperature 98.2 F Temperature Source Oral Pulse Rate 98 H Pulse Rate [Left Radial] 95 H Respiratory Rate 20 18 Blood Pressure 139/81 Blood Pressure [Right Arm] 139/81 Blood Pressure Mean [Right Arm] 100 Blood Pressure Source Automatic Cuff Blood Pressure Source [Right Arm] Automatic Cuff Blood Pressure Position Supine Blood Pressure Position [Right Arm] Sitting 02 Sat by Pulse Oximetry 99 94 L Oxygen Delivery Method Room Air Room Air - Lab Data Lab Results 04/28/22 16:00: WBC 11.4 H, RBC 4.67, Hgb 14.3, Hct 46.9, MCV 100.5 H, MCH 30.6, MCHC 30.4 L, RDW 15.6, Plt Count 629 H, MPV 8.2, Neut % (Auto) 71.7, Lymph % (Auto) 22.5, [place] % (Auto) 3.0, Eos % (Auto) 1.8, Baso % (Auto) 1.0, Neut # (Auto) 8.2 H, Lymph # (Auto) 2.6, [place] # (Auto) 0.4, Eos # (Auto) 0.2, Baso # (Auto) 0.1 04/28/22 16:00: Sodium 137, Potassium 4.4, Chloride 102, Carbon Dioxide 29, Anion Gap 10.4, BUN 7 L, Creatinine 0.50 L, Estimated Creat Clear 160, Estimated GFR 171, Est GFR ( Amer) 207, Glucose 112 H, Calcium 8.6, Total Bilirubin 0.3, AST 26, ALT 11 L, Alkaline Phosphatase 147 H, Total Protein 6.8, Albumin 3.8, Globulin 3.0, Albumin/Globulin Ratio 1.3 04/28/22 16:00: Lipase 221 Result diagrams: 04/28/22 16:00 04/28/22 16:00 Orders (Tests/Meds): ED MEDICATIONS Generic Name Dose Route Start Last Admin Trade Name Yamile PRN Reason Stop Dose Admin Ertapenem 1 gm/ Sodium 50 mls @ 100 mls/hr 04/28/22 18:09 Chloride IV 04/28/22 18:10 ONCE ONE Discontinued Medications Generic Name Dose Route Start Last Admin Trade Name Freq PRN Reason Stop Dose Admin Hydromorphone HCl 1 mg 04/28/22 16:04 04/28/22 16:05 Hydromorphone 2mg/Ml Syringe IV 04/28/22 16:05 1 mg ONCE ONE Administration Hydromorphone HCl 1 mg 04/28/22 17:11 04/28/22 17:49 Hydromorphone 2mg/Ml Syringe IM 04/28/22 17:12 Not Given ONCE ONE Hydromorphone HCl 1 mg 04/28/22 17:17 04/28/22 17:18 Hydromorphone 2mg/Ml Syringe IV 04/28/22 17:18 1 mg ONCE ONE Administration Sodium Chloride 1,000 mls @ 999 mls/hr 04/28/22 16:00 04/28/22 16:04 Sod Chlor 0.9% 1000ml Bag IV 04/28/22 17:00 999 mls/hr .Q1H1M MIRANDA Administration Pantoprazole Sodium 80 mg/ 100 mls @ 100 mls/hr 04/28/22 17:35 04/28/22 17:40 Sodium Chloride IV 04/28/22 18:34 100 mls/hr ONCE ONE Administration Iopamidol 75 ml 04/28/22 16:56 04/28/22 16:56 Iopamidol-370 (76%);100ml Bottle IV 04/28/22 16:57 75 ml ONCE ONE Administration Ketorolac Tromethamine 30 mg 04/28/22 15:58 04/28/22 16:04 Ketorolac 30mg/Ml Vial IV 04/28/22 15:59 30 mg ONCE ONE Administration Ondansetron HCl 4 mg 04/28/22 16:04 04/28/22 16:05 Ondansetron 4mg/2ml Vial IV 04/28/22 16:05 4 mg ONCE ONE Administration Sodium Chloride 10 ml 04/28/22 16:56 04/28/22 16:56 Sodium Chloride 0.9% 10ml Syr (Rad Only) IV 04/28/22 16:57 10 ml ONCE ONE Administration ORDERS Category Date Time Status Rapid PCR Covid and Flu A/B Stat Lab 04/28/22 17:18 Received Urin
--- NOTE | 2022-04-28 19:47 | HMH.ANESCL ---
[facility] Anesthesia Checklist - Structural Data Admitted From: Emergency Dept Planned Operative Procedure/s: exp laparotomy Consent for Planned Operative Procedure(s) Verified: Yes - Additional verifications Anesthesia Reactions: No Hx Blood Transfusions: No - Airway Assessment C-Spine Mobility Assessed: Yes TMJ Mobility Assessed: Yes Dentition: Poor Dentition - Neurological Assessment Level of Consciousness: Awake, Alert, Appropriate - Anesthesia Plan Anesthesia Risk discussed: Yes Anesthesia Plan: Verified ASA Class: III Anesthesia Type: General [facility] History I have reviewed the patient's past medical history: Yes Medical History: Reports:: Chronic Obstructive Pulmonary Disease (COPD), Hypertension Denies:: Cancer, Diabetes Mellitus Type 1, Diabetes Mellitus Type 2, Internal Pacemaker, MRSA, Seizures *Have you ever received a pneumonia vaccine?: Yes *Have you received a flu vaccine this season?: Yes Other Medical History: Reports: Arthritis Anesthesia experience/problems:: none Other Surgeries: No: Pacemaker Amputation: No Fractures: No - *Social History Smoking Status: Current every day smoker Tobacco Type: cigarettes # Packs/Day (cigarettes): 1 Alcohol Intake: never Substance Use Type: denies use *Occupational Status:: other Housing: house Household Members: spouse *Travel in the last 8 weeks: None Family Hx:: Diabetes, Hypertension
--- NOTE | 2022-04-28 20:05 | P.OP_ITS ---
Date of procedure: 04/28/22 Pre-op Diagnosis:: Acute surgical abdomen, peritonitis Post-op Diagnosis:: Same Procedure performed:: Exploratory laparotomy, repair of perforated anterior duodenal bulb ulcer with omental pedicle patch (Herberth patch) Surgeon:: Garrett Read MD HONEY EXTRACTOR:: Carlos Eduardo Hernandez Anesthesia: GETA Estimated blood loss (mL): 25 Clinical Note:: Patient is a 56-year-old smoker with COPD from [place]. He states that when he woke up this afternoon at approximately 1 PM he was noted to have severe abdominal pain. This was mostly in the upper abdomen with some radiation to his shoulder. It moved around and migrated somewhat. He presented to the emergency department at [facility]. He was found to have findings of sig nificant pain which was difficult to control and acute abdomen. He underwent work-up including CT scan which revealed findings consistent with perforated duodenal ulcer. Patient has no known ulcer history. He does have symptoms of GERD and reflux. He states that he drinks daily. Patient was seen and examined in the emergency department. He was found to have findings of peritonitis. Arrangements were made for immediate laparotomy. Operative findings:: Patient had approximately a 3-4 mm anterior duodenal bulb ulcer with perforation with spillage of gastric liquid. There was some minor surrounding exudate. Operative note:: Patient was taken the operating room. He was given preoperative intravenous antibiotics. In the operating room he was placed in a supine position. General anesthesia was induced via endotracheal tube. Bella catheter was placed. Abdomen was prepped and draped in the standard surgical fashion. Upper midline incision was made. Dissection was carried down through subcutaneous tissues. Fascia was incised. Exposure was achieved. There was some thin light greenish liquid within the abdomen and this was suctioned free. Exposure was achieved and there was noted to be a perforation of the anterior duodenal bulb consistent with a left anterior perforated ulcer. Defect measured about 3 or 4 mm. Plan was made for repair with omental pedicle patch. Vascular pedicle of omentum was created using the Enseal device dissecting pedicle down to the transverse colon from the greater omentum. Several sutures were placed transversely at the site of the defect using 3-0 Surgilon. Omental vascular pedicle was brought through the sutures and then they were tied down securing the pedicle of omentum to the defect. Repair appeared adequate. Irrigation was performed thoroughly until clear. There was good hemostasis. Enteric contents were returned. Nasogastric tube was confirmed to be within the gastric lumen. It was at approximately 64 cm at the nares. Fascia was then closed with a running #1 looped PDS. Subcutaneous tissues were irrigated and hemostasis was achieved with electrocautery. Skin was closed with markus. Clean dry sterile dressing was applied. Condition: stable Disposition: PACU Complications:: None immediately apparent
--- NOTE | 2022-04-28 20:20 | P.PN_ITS ---
[facility] Anesthesia Record Part I Intake, IV Amount: 2,500 Estimated blood loss (mL): 100 Urine output (mL): 500 Blood Pressure: 107/88 SaO2: 95 Pulse Rate: 102 Respiratory Rate: 12 Temperature: 98.6 F Patient is:: Awake, Stable Stable to PACU at:: 20:15
--- NOTE | 2022-04-28 21:05 | PC.NURSE ---
PT ARRIVED TO FLOOR VIA BED FROM SURGERY AT THIS TIME.
--- NOTE | 2022-04-28 21:22 | SUR.PHASEI ---
2041 Pt continues to rate pain level at a 10. Pt appears to be resting comfortably and is having a conversation about previous injuries without issues. When asked to rest, pt is able to doze off to sleep without problems and appears confortable.
--- NOTE | 2022-04-28 21:25 | SUR.PHASEI ---
LATE ENTRY 2054 called and gave detailed report to constance Webb/surgical services assistant 2099 transported via bed to med/surg room. vital signs stable. pain level is rated at 10 but appears to be resting comfortably. see MAR for medication administration. left pt in stable condition with constance Webb/surgical services assistant at bedside.
--- NOTE | 2022-04-28 21:36 | PC.NURSE ---
Addendum entered by Ruth Mesa RN 04/28/22 21:38: pt maintains pain level at 10 when aroused to rate pain. Original Note: LATE ENTRY 1597 pt appears to be resting comfortably. pt falls asleep easily when not talking.
--- NOTE | 2022-04-28 21:40 | PC.NURSE ---
LATE ENTRY 2100 Again, pt maintains that pain level is 10 when aroused but wishes to go to room. Pt easily falls asleep when not talking.
[2022-04-28 23:18] LABS: Appearance,Urine/Cath CLEAR (Clear); Bilirubin,Cath Negative (Negative); Blood, Urine/Cath Negative (Negative); Color,Urine/Cath YELLOW (Yellow); Glucose,Urine/Cath (UA) Negative (Negative); Ketones,Urine/Cath Negative (Negative); Leukocyte Esterase,Cath Negative (Negative); Microscopic,Cath URINE MICROSCOPIC (MICROSCOPIC); Nitrate,Cath Negative (Negative); Protein,Urine/Cath Negative (Negative); Specific Gravity, Urine/Cath 1.025 (1.005-1.030); Urobilinogen,Cath 0.2 EU/dl (0.2)
[2022-04-28 23:47] LABS: Bacteria,Urine/Cath TRACE /lpf; RBC,Urine/Cath Occasional # /hpf (0-3); Squamous Epithelial Ur./Cath Occasional #/hpf (0-5); WBC,Urine/Cath Occasional #/hpf (0-3)
[2022-04-28 23:48] LABS: Sperm,Urine/Cath 1+ /lpf
[2022-04-29] VITALS (15 sets, daily range): BP systolic 106–145; BP diastolic 55–85; PULSE 60–95; RESP 16–20; TEMP 36.5–37.3; O2SAT 94–96; BMI 19.6
--- NOTE | 2022-04-29 04:52 | PC.NURSE ---
Pt has rested intermittently throughout shift. Lung sounds are clear bilaterally and is tolerating room air well. Bowel sounds are active in all 4 quads. ABD remains extremely tender to the touch. Pillow across ABD to splint what coughing and deep breathing. MECHANICAL ASSEMBLY in place and pt tolerating well and voiced that pain was, not too bad this morning, a lot better than yesterday . Pt has a midline incision with markus, 4x4, and tegaderm in place. Coude catheter remains in place and is draining adequate amounts of clear yellow urine. NG tube remains at approximately 64 at the right nare and is hooked to continuous low wall suction. Pt has not c/o N/V/D. Call pierce within reach.
--- NOTE | 2022-04-29 06:58 | PC.NURSE ---
PRODUCTION WOOD CRAFTSMAN CLEARED AT THIS TIME. 10MG USED THIS SHIFT.
[2022-04-29 07:22] LABS: Chloride 102 mmol/L (98-107); Potassium 4.5 mmoL/L (3.5-5.1); Sodium 132 mmol/L (136-145)
[2022-04-29 07:24] LABS: Blood Urea Nitrogen 9 mg/dl (9-20); Creatinine Clearance Estimated 188 mL/min (50-200); Estimated Glomerular Filt Rate 221 ml/min (>60); GFR (African American) 267 ML/MIN (>60)
--- NOTE | 2022-04-29 07:24 | P.CONPHA_ITS ---
[facility] Pharmacy VTE Monitoring - Patient Demographics Admission date: 04/28/22 Report Date: 04/29/22 Time: 07:24 Allergies/Adverse Reactions: Patient Allergies No Known Allergies Allergy (Unverified 08/25/17 15:24) Height: 1.83 m Weight: 65.884 kg Patient Problems: Current Active Problems Perforated abdominal viscus (Acute) - VTE Risk Labs: VTE Related Lab Results Hgb 14.3 g/dL (14.1-18.0) 04/28/22 16:00 Hct 46.9 % (42.0-52.0) 04/28/22 16:00 Plt Count 629 K/mm3 (142-424) H 04/28/22 16:00 BUN 7 mg/dl (9-20) L 04/28/22 16:00 Creatinine 0.50 mg/dl (0.66-1.25) L 04/28/22 16:00 Estimated Creat Clear 160 mL/min (50-200) 04/28/22 16:00 Was VTE Risk Assessment Performed: Yes VTE Score: 7 VTE Risk Level: Moderate Risk - Prophylaxis VTE Prophylaxis Ordered?: Yes Types of VTE Prophylaxis: IPCS Thigh High Location of Applied Device: Bilateral Lower Extremeties
[2022-04-29 07:25] LABS: Alanine Aminotransferase 12 U/L (12-78); Albumin Level 3.2 g/dl (3.5-5.0); Albumin/Globulin Ratio 1.2 (1.1-1.8); Alkaline Phosphatase 94 U/L (38-126); Aspartate Amino Transferase 23 U/L (17-59); Bilirubin,Total 0.3 mg/dl (0.2-1.3); Calcium 7.8 mg/dl (8.4-10.2); Carbon Dioxide 28 mmol/L (22.0-30.0); Globulin 2.6 g/dL (1.3-3.2); Glucose 130 mg/dl (74-100); Magnesium 1.7 mg/dl (1.6-2.3); Total Protein,Serum 5.8 g/dl (6.3-8.2)
[2022-04-29 07:28] LABS: Basophils % 0.1 % (0.1-2.0); Eosinophils # 0.1 K/mm3 (0.0-0.4); Eosinophils % 0.3 % (0.1-12.0); Hematocrit 38.2 % (42.0-52.0); Lymphocytes # 1.1 K/mm3 (0.7-4.5); Lymphocytes % 6.5 % (10-50); Mean Corpuscular HGB Conc 31.1 g/dL (31.8-35.4); Mean Corpuscular Hemoglobin 30.6 pg (27.0-31.2); Mean Corpuscular Volume 98.3 fl (80-94); Mean Platelet Volume 8.4 fl (7.4-10.4); Monocytes # 0.4 K/mm3 (0.1-1.0); Monocytes % 2.4 % (1.7-9.3); Neutrophils # 15.8 K/mm3 (1.8-7.8); Neutrophils % 90.7 % (37.0-80.0); Platelet Count 424 K/mm3 (142-424); Red Blood Count 3.88 M/mm3 (4.60-6.20); Red Cell Distribution Width 15.5 % (11.5-17.5); White Blood Count 17.4 K/mm3 (4.8-10.8)
[2022-04-29 07:29] LABS: Hemoglobin 11.8 g/dL (14.1-18.0); MANUAL DIFFERENTIAL MANUAL DIFFERENTIAL (MANUAL DIFF)
--- NOTE | 2022-04-29 07:29 | HMH.HP ---
*Admission Date: 04/28/22 *Chief complaint: abdominal pain *History of present illness: Mr. Kelly is a 56-year-old male with history of chronic pain, tobacco dependence with COPD, and daily alcohol consumption who presented to the ER with acute onset severe abdominal pain. States that he woke from a nap yesterday afternoon and noted severe abdominal pain with any type of movement. Denies any nausea or vomiting. Denies any fever. Pain mainly in the upper abdomen. Radiated to his left shoulder when he would rotate to his left side. Was very difficult to get up from a lying position. On arrival to the ER, was noted to have significant pain and abdominal imaging along with labs were performed. CT of his abdomen revealed findings consistent with perforated duodenal ulcer. Surgery was consulted and patient was urgently taken to the OR for exploratory laparotomy. Duodenal bulb ulcer with perforation identified, surgically closed. See surgery notes for full details. This morning patient is feeling somewhat better but still has a tender abdomen. NG in place with suction. Denies any fever overnight. [facility] History I have reviewed the patient's past medical history: Yes Medical History: Reports:: Chronic Obstructive Pulmonary Disease (COPD), Hypertension Denies:: Cancer, Diabetes Mellitus Type 1, Diabetes Mellitus Type 2, Internal Pacemaker, MRSA, Seizures *Have you ever received a pneumonia vaccine?: No *Have you received a flu vaccine this season?: No Other Medical History: Reports: Arthritis, Sinus Problems Anesthesia experience/problems:: none Other Surgeries: Yes: Cardiac Catheterization, Colonoscopy. No: Pacemaker Amputation: No Fractures: No - *Social History Last grade of school completed: Some college Smoking Status: Current every day smoker Tobacco Type: cigarettes # Packs/Day (cigarettes): 1 Alcohol Intake: current Alcohol Intake Frequency:: 3 or more drinks per day Substance Use Type: denies use *Occupational Status:: disabled Housing: house Household Members: spouse *Travel in the last 8 weeks: None Family Hx:: Cancer, Diabetes, Heart Attack, Hyperlipidemia, Hypertension, Mental illness Review of Systems - Review of Systems Review of systems:: pertinent systems reviewed and negative unless documented below (14 point review of systems performed, pertinent positives and negatives as per HPI) Meds Home Medications Medication Instructions Recorded Confirmed Type albuterol sulfate 90 mcg/actuation 2 puff IH QIDP PRN 02/22/18 04/29/22 History aerosol inhaler bupropion HCl 300 mg 24 hr tablet, 300 mg PO DAILY 02/22/18 04/29/22 History extended release fluticasone propionate 50 2 spray NS DAILY g 02/22/18 04/29/22 History mcg/actuation nasal spray,suspension meloxicam 15 mg tablet 15 mg PO DAILYP PRN tab 02/22/18 04/29/22 History montelukast 10 mg tablet 10 mg PO QPM 02/22/18 04/29/22 History tamsulosin 0.4 mg capsule 0.4 mg PO BID cap 02/22/18 04/29/22 History Amlodipine Besylate [Amlodipine 10 mg PO DAILY 04/29/22 04/29/22 History 10mg Tab] Fexofenadine HCl [Pari 180 mg PO DAILY 04/29/22 04/29/22 History Allergy] Hydrocodone/Acetaminophen 1 - 2 tab PO TID 04/29/22 04/29/22 History [Hydrocodone-Acetamin 7.5-325] Tiotropium Br/Olodaterol HCl 2 puff IH DAILY 04/29/22 04/29/22 History [Stiolto Respimat Inhal [place]] Venlafaxine HCl [Venlafaxine HCl 75 mg PO DAILY 04/29/22 04/29/22 History ER] Allergies Allergy/AdvReac Type Severity Reaction Status Date / Time No Known Allergies Allergy Unverified 08/25/17 15:24 Exam Vital signs and Labs for Last 24 Hours: Temp Pulse Resp BP Pulse Ox 99.1 F 60 19 122/75 96 04/29/22 06:00 04/29/22 06:00 04/29/22 06:00 04/29/22 06:00 04/29/22 06:00 Laboratory Results - last 24 hr 04/28/22 16:00: WBC 11.4 H, RBC 4.67, Hgb 14.3, Hct 46.9, MCV 100.5 H, MCH 30.6, MCHC 30.4 L, RDW 15.6, Plt Count 629 H, MPV 8.2, Neut %
[2022-04-29 07:34] LABS: Anion Gap 6.5 mEq/L (5-15)
--- NOTE | 2022-04-29 07:44 | P.PN_ITS ---
Subjective Narrative: Patient complains of some soreness. Progress Note: A&P Assessment and Plan for All Diagnoses:: ALANNA Bella. Possible Gastroview upper GI tomorrow prior to removal of NG. Continue Invanz for total of 3 doses Exam Vital signs and Labs for Last 24 Hours: Temp Pulse Resp BP Pulse Ox 99.1 F 60 19 122/75 96 04/29/22 06:00 04/29/22 06:00 04/29/22 06:00 04/29/22 06:00 04/29/22 06:00 Laboratory Results - last 24 hr 04/28/22 16:00: WBC 11.4 H, RBC 4.67, Hgb 14.3, Hct 46.9, MCV 100.5 H, MCH 30.6, MCHC 30.4 L, RDW 15.6, Plt Count 629 H, MPV 8.2, Neut % (Auto) 71.7, Lymph % (Auto) 22.5, [place] % (Auto) 3.0, Eos % (Auto) 1.8, Baso % (Auto) 1.0, Neut # (Auto) 8.2 H, Lymph # (Auto) 2.6, [place] # (Auto) 0.4, Eos # (Auto) 0.2, Baso # (Auto) 0.1 04/28/22 16:00: Sodium 137, Potassium 4.4, Chloride 102, Carbon Dioxide 29, Anion Gap 10.4, BUN 7 L, Creatinine 0.50 L, Estimated Creat Clear 160, Estimated GFR 171, Est GFR ( Amer) 207, Glucose 112 H, Calcium 8.6, Total Bilirubin 0.3, AST 26, ALT 11 L, Alkaline Phosphatase 147 H, Total Protein 6.8, Albumin 3.8, Globulin 3.0, Albumin/Globulin Ratio 1.3 04/28/22 16:00: Lipase 221 04/28/22 17:18: SARS-CoV-2 (PCR) Not detected, Influenza A Untype (PCR) Not detected, Influenza Type B (PCR) Not detected 04/28/22 18:53: Urine Color Yellow, Urine Appearance Clear, Urine pH 6.0, Ur Specific [place] 1.025, Urine Protein Negative, Urine Glucose (UA) Negative, Urine Ketones Negative, Urine Blood Negative, Urine Nitrate Negative, Urine Bilirubin Negative, Urine Urobilinogen 0.2, Ur Leukocyte Esterase Negative, Urine RBC Occasional, Urine WBC Occasional, Ur Squamous Epith Cells Occasional, Urine Bacteria Trace, Urine Sperm 1+ 04/29/22 06:39: WBC 17.4 H D, RBC 3.88 L, Hgb 11.8 L D, Hct 38.2 L, MCV 98.3 H, MCH 30.6, MCHC 31.1 L, RDW 15.5, Plt Count 424 D, MPV 8.4, Neut % (Auto) 90.7 H , Lymph % (Auto) 6.5 L, [place] % (Auto) 2.4, Eos % (Auto) 0.3, Baso % (Auto) 0.1, Neut # (Auto) 15.8 H, Lymph # (Auto) 1.1, [place] # (Auto) 0.4, Eos # (Auto) 0.1, Baso # (Auto) 0.0 04/29/22 06:39: Sodium 132 L, Potassium 4.5, Chloride 102, Carbon Dioxide 28, Anion Gap 6.5, BUN 9 D, Creatinine 0.40 L, Estimated Creat Clear 188, Estimated GFR 221, Est GFR ( Amer) 267 D, Glucose 130 H, Calcium 7.8 L, Magnesium 1.7, Total Bilirubin 0.3, AST 23, ALT 12, Alkaline Phosphatase 94, Total Protein 5.8 L, Albumin 3.2 L D, Globulin 2.6, Albumin/Globulin Ratio 1.2 I & O for Last 24 hours: Intake & Output 04/26/22 04/27/22 04/28/22 04/29/22 11:59 11:59 11:59 11:59 Intake Total 3397 / 3397 Output Total 1200 / 1200 Balance 2197 / 2197 Weight 145 lb 4 oz - *Routine Abdominal Exam Present: soft Comments: Incision with some lower serous drainage
[2022-04-29 08:03] LABS: Anisocytosis 1+; Hypochromasia 1+; Lymphocytes % 7 % (10-50); Macrocytosis 1+; Monocytes % 2 % (2-9); Neutrophils % 91 % (42-76); Platelet Estimate Slight Increase; Total Cells Counted 100
--- NOTE | 2022-04-29 10:34 | HMH.PHAINT ---
MEDICATION RECONCILIATION COMPLETED ON PATIENT USING [place] REPORT AND LIST FROM PCP OFFICE. -RICHARD MORENO, EVAD
--- NOTE | 2022-04-29 15:47 | PC.NURSE ---
rounded on patient. no concerns or questions noted. stated he felt pretty good. no complaints. eating ice chips. encouraged him to ring out with any needs.
--- NOTE | 2022-04-29 18:12 | PC.NURSE ---
14 MG CLEARED FROM MOLD FINISHER
--- NOTE | 2022-04-29 18:24 | PC.NURSE ---
PT IS AOX4, ABLE TO MAKE NEEDS KNOWN TO STAFF. HERNANDEZ REMOVED THIS MORNING. PT HAS ONLY URINATED ONCE SINCE REMOVAL BUT PT URINATED 275 ML AT THAT TIME. HE HAS NOT REQUIRED O2 SUPPORT. HOME ECONOMICS EXTENSION WORKER REMAINS IN PLACE WITH NG TUBE @64 TO RIGHT NARE HOOKED TO CONT LOW WALL SUCTION.
[2022-04-30] VITALS (10 sets, daily range): BP systolic 112–145; BP diastolic 57–92; PULSE 76–92; RESP 16–18; TEMP 36.6–37.4; O2SAT 93–96; BMI 19.6
--- NOTE | 2022-04-30 01:50 | PC.NURSE ---
Patient a&o x4. Bowel sounds are hypoactive in all 4 quads. ABD remains tender. Midline incision dressing is CDI. Patient states REFUSE LABORER is keeping pain under control. Patient tolerating RA with 02 sats above 90%. Patient has an ng tube to the rt nare at 64 hooked to LCS greenish sludge like output noted. Patient states he is belching however no flatus thus far in shift. Early entry r/t scheduled downtime.
--- NOTE | 2022-04-30 09:37 | PC.NURSE ---
PT not willing to use urinal.
--- NOTE | 2022-04-30 10:29 | EXP.ACUTE.PN ---
Subjective *Date: 04/30/22 *Time: 10:29 Interval history: Overall patient feels little better, a little bit of incision pain around his surgery site. Taking a deep breath in. Is some splinting pain when he breathes in deeply. Medical Exam Vital signs and Labs for Last 24 Hours: Temp Pulse Resp BP Pulse Ox 97.8 F 77 16 133/78 96 04/30/22 10:00 04/30/22 10:00 04/30/22 10:00 04/30/22 10:00 04/30/22 10:00 I & O for Labs for Last 24 Hours: Intake & Output 04/27/22 04/28/22 04/29/22 04/30/22 11:59 11:59 11:59 11:59 Intake Total 3397 / 3397 1420 / 1420 Output Total 1200 / 1200 500 / 500 Balance 2197 / 2197 920 / 920 Weight 145 lb 1.027 oz Comment:: Patient is pleasant, talkative. Alert. Lungs have good air movement. NG tube in right nostril. Abdomen tender at the incision site but soft. No extremity edema. Neurologically intact. Assessment and Plan Assessment and plan all Dx Plan of Treatment: Surgery note reviewed, appreciate recommendations. Agree with plan of care.
--- NOTE | 2022-04-30 10:37 | PC.NURSE ---
PER Kraig ANAYA RN: CLEARED 7MG FROM TECHNOLOGY DIRECTOR PUMP. 130ML OF DRAINAGE FROM NG TUBE NOTED. GREEN/BROWN.
--- NOTE | 2022-04-30 10:39 | EXP.SURG.PN ---
Subjective Patient reports: no new complaints Exam Data for Last 24 hours Vital signs and Labs for Last 24 Hours: Temp Pulse Resp BP Pulse Ox 97.8 F 77 16 133/78 96 04/30/22 10:00 04/30/22 10:00 04/30/22 10:00 04/30/22 10:00 04/30/22 10:00 I & O for Last 24 hours: Intake & Output 04/27/22 04/28/22 04/29/22 04/30/22 11:59 11:59 11:59 11:59 Intake Total 3397 / 3397 1420 / 1420 Output Total 1200 / 1200 630 / 630 Balance 2197 / 2197 790 / 790 Weight 145 lb 1.027 oz Constitutional Constitutional: no acute distress *Routine Respiratory Exam Respiratory: Absent respiratory distress *Routine Cardiovascular Exam Cardiovascular: Absent tachycardia *Routine Abdominal Exam Abdominal: Present soft Comments: Incision healing without sign of infection. Progress Note: A&P Assessment and plan (1) Perforated abdominal viscus: Problem details: Overall, doing well status post exploration with Herberth patch. Follow-up UGI and remove nasogastric tube if no leak noted. If NG removed ice chips will be ordered. Status: Acute (2) Emphysema/COPD: Status: Chronic (3) GERD (gastroesophageal reflux disease): Status: Chronic (4) Chronic pain: Status: Chronic (5) Tobacco user: Status: Chronic
--- NOTE | 2022-04-30 11:30 | PC.NURSE ---
Called and LM on [facility] voicemail to clarify what x rays Dr. Sweet wanted. Awaiting cb at this time. 1130.
--- NOTE | 2022-04-30 11:39 | FL_ITS ---
FINAL REPORT CLINICAL HISTORY: ft- 1:37 check for leack post grahm patch, perf ulcer, gastro thru ng tube FINDINGS: UPPER GI EXAM HISTORY: . Postop duodenal perforation. PROCEDURE: Gastrografin contrast was gently injected through the patient's existing nasogastric tube. Spot and overhead films were obtained. FINDINGS: Nasogastric tube is identified terminating within the stomach. The stomach Empties appropriately. No extravasation of contrast was seen during the exam. There is mild edema of the proximal duodenum. FLUOROSCOPY TIME: 1 minute 37 seconds. 12 radiographs were obtained. IMPRESSION: No leak identified. Films reviewed , interpreted and dictated by Dr. Dickson. Transcribed by Mike Murray PA-C. Reviewed, Interpreted and Dictated by Oskar Dickson MD Transcribed by SERGEY Dwyer Authenticated and [facility]
--- NOTE | 2022-04-30 13:19 | PC.NURSE ---
rounded on patient. no concerns or questions at this time. does state i am starving . awaiting for xray. ng still in place. patient has been taking in ice chips and mouth swabs. no needs voiced. encouraged him to ring out with any needs or concerns.
[2022-04-30 15:01] LABS: Chloride 104 mmol/L (98-107); Potassium 4.1 mmoL/L (3.5-5.1); Sodium 139 mmol/L (136-145)
[2022-04-30 15:04] LABS: Anion Gap 10.1 mEq/L (5-15); Calcium 8.3 mg/dl (8.4-10.2); Carbon Dioxide 29 mmol/L (22.0-30.0); Glucose 91 mg/dl (74-100)
[2022-04-30 15:41] LABS: Basophils % 0.2 % (0.1-2.0); Eosinophils # 0.1 K/mm3 (0.0-0.4); Eosinophils % 0.5 % (0.1-12.0); Hematocrit 34.7 % (42.0-52.0); Hemoglobin 11.1 g/dL (14.1-18.0); Lymphocytes % 12.7 % (10-50); Mean Corpuscular HGB Conc 32.1 g/dL (31.8-35.4); Mean Corpuscular Hemoglobin 30.7 pg (27.0-31.2); Mean Corpuscular Volume 95.6 fl (80-94); Mean Platelet Volume 10.4 fl (7.4-10.4); Monocytes # 0.4 K/mm3 (0.1-1.0); Monocytes % 2.5 % (1.7-9.3); Platelet Count 436 K/mm3 (142-424); Red Blood Count 3.63 M/mm3 (4.60-6.20); Red Cell Distribution Width 15.4 % (11.5-17.5); White Blood Count 15.5 K/mm3 (4.8-10.8)
[2022-04-30 15:54] LABS: MANUAL DIFFERENTIAL MANUAL DIFFERENTIAL (MANUAL DIFF)
[2022-04-30 17:20] LABS: Blood Urea Nitrogen 12 mg/dl (9-20); Creatinine Clearance Estimated 150 mL/min (50-200); Estimated Glomerular Filt Rate 171 ml/min (>60); GFR (African American) 207 ML/MIN (>60)
[2022-04-30 18:52] LABS: Eosinophils % 1 % (0-3); Lymphocytes % 8 % (10-50); Monocytes % 5 % (2-9); Neutrophils % 86 % (42-76); Platelet Estimate Normal; RBC Morphology Normal; Total Cells Counted 100
--- NOTE | 2022-04-30 19:49 | PC.NURSE ---
NG removed @ 1400. No acute changes since last assessment. CB in reach and at bedside. 14 mg morphine from GUM PULLER cleared for shift.
[2022-05-01] VITALS (14 sets, daily range): BP systolic 126–179; BP diastolic 67–89; PULSE 71–111; RESP 16–22; TEMP 36.6–38.7; O2SAT 90–94; BMI 20.2
--- NOTE | 2022-05-01 04:24 | PC.NURSE ---
Pt is alert and oriented x4, pt has had no complaints this far in shift. Midline incision open to air, markus in tact, no redness or drainage noted. Pt has received IV antibiotics this shift. Pt independent in the room. Pt lung sounds clear, O2 sat >90% on room air. Pt abdomen is soft and tender, bowel sounds are active. has been at bedside throughout the night. Call light in reach and working.
--- NOTE | 2022-05-01 06:49 | PC.NURSE ---
10mg morphine cleared from [facility]
[2022-05-01 08:14] LABS: Basophils % 0.2 % (0.1-2.0); Eosinophils # 0.3 K/mm3 (0.0-0.4); Eosinophils % 1.7 % (0.1-12.0); Hematocrit 37.8 % (42.0-52.0); Hemoglobin 12.2 g/dL (14.1-18.0); Lymphocytes # 1.9 K/mm3 (0.7-4.5); Lymphocytes % 12.4 % (10-50); Mean Corpuscular HGB Conc 32.3 g/dL (31.8-35.4); Mean Corpuscular Hemoglobin 30.7 pg (27.0-31.2); Mean Platelet Volume 8.8 fl (7.4-10.4); Monocytes # 0.2 K/mm3 (0.1-1.0); Monocytes % 1.4 % (1.7-9.3); Neutrophils # 12.8 K/mm3 (1.8-7.8); Neutrophils % 84.3 % (37.0-80.0); Platelet Count 489 K/mm3 (142-424); Red Blood Count 3.98 M/mm3 (4.60-6.20); Red Cell Distribution Width 15.4 % (11.5-17.5); White Blood Count 15.2 K/mm3 (4.8-10.8)
[2022-05-01 08:25] LABS: Alanine Aminotransferase 18 U/L (12-78); Albumin Level 3.2 g/dl (3.5-5.0); Alkaline Phosphatase 96 U/L (38-126); Anion Gap 9.3 mEq/L (5-15); Aspartate Amino Transferase 26 U/L (17-59); Bilirubin,Total 0.6 mg/dl (0.2-1.3); Blood Urea Nitrogen 5 mg/dl (9-20); Calcium 8.3 mg/dl (8.4-10.2); Carbon Dioxide 28 mmol/L (22.0-30.0); Chloride 97 mmol/L (98-107); Creatinine Clearance Estimated 154 mL/min (50-200); Estimated Glomerular Filt Rate 171 ml/min (>60); GFR (African American) 207 ML/MIN (>60); Globulin 3.1 g/dL (1.3-3.2); Glucose 86 mg/dl (74-100); Potassium 3.3 mmoL/L (3.5-5.1); Sodium 131 mmol/L (136-145); Total Protein,Serum 6.3 g/dl (6.3-8.2)
[2022-05-01 08:27] LABS: MANUAL DIFFERENTIAL MANUAL DIFFERENTIAL (MANUAL DIFF)
--- NOTE | 2022-05-01 08:42 | P.PN_ITS ---
Subjective *Date: 05/02/22 *Time: 07:57 Medical Exam Vital signs and Labs for Last 24 Hours: Temp Pulse Resp BP Pulse Ox 98.9 F 98 H 16 150/82 H 94 L 05/01/22 08:34 05/01/22 08:00 05/01/22 08:00 05/01/22 08:00 05/01/22 08:00 Laboratory Results - last 24 hr 04/30/22 14:35: WBC 15.5 H, RBC 3.63 L, Hgb 11.1 L, Hct 34.7 L, MCV 95.6 H, MCH 30.7, MCHC 32.1, RDW 15.4, Plt Count 436 H, MPV 10.4, Neut % (Auto) 84.0 H, Lymph % (Auto) 12.7, [place] % (Auto) 2.5, Eos % (Auto) 0.5, Baso % (Auto) 0.2, Neut # (Auto) 13.0 H, Lymph # (Auto) 2.0, [place] # (Auto) 0.4, Eos # (Auto) 0.1, Baso # (Auto) 0.0, Total Counted 100, Neutrophils % (Manual) 86 H, Lymphocytes % (Manual) 8 L, Monocytes % (Manual) 5, Eosinophils % (Manual) 1, Platelet Estimate Normal, RBC Morphology Normal 04/30/22 14:35: Sodium 139, Potassium 4.1, Chloride 104, Carbon Dioxide 29, Anion Gap 10.1, BUN 12 D, Creatinine 0.50 L D, Estimated Creat Clear 150, Estimated GFR 171, Est GFR ( Amer) 207 D, Glucose 91, Calcium 8.3 L 05/01/22 07:49: WBC 15.2 H, RBC 3.98 L, Hgb 12.2 L, Hct 37.8 L, MCV 95.0 H, MCH 30.7, MCHC 32.3, RDW 15.4, Plt Count 489 H, MPV 8.8, Neut % (Auto) 84.3 H, Lymph % (Auto) 12.4, [place] % (Auto) 1.4 L, Eos % (Auto) 1.7, Baso % (Auto) 0.2, Neut # (Auto) 12.8 H, Lymph # (Auto) 1.9, [place] # (Auto) 0.2, Eos # (Auto) 0.3, Baso # (Auto) 0.0 05/01/22 07:49: Sodium 131 L, Potassium 3.3 L, Chloride 97 L, Carbon Dioxide 28, Anion Gap 9.3, BUN 5 L D, Creatinine 0.50 L, Estimated Creat Clear 154, Estim ated GFR 171, Est GFR ( Amer) 207, Glucose 86, Calcium 8.3 L, Total Bilirubin 0.6, AST 26, ALT 18 D, Alkaline Phosphatase 96, Total Protein 6.3, Albumin 3.2 L, Globulin 3.1, Albumin/Globulin Ratio 1.0 L I & O for Labs for Last 24 Hours: Intake & Output 04/28/22 04/29/22 04/30/22 05/01/22 11:59 11:59 11:59 11:59 Intake Total 3397 / 3397 1420 / 1420 2361 / 2361 Output Total 1200 / 1200 630 / 630 450 / 450 Balance 2197 / 2197 790 / 790 191 / 191 Weight 145 lb 1.027 oz 145 lb 1 oz 149 lb 4.8 oz Assessment and Plan Assessment and plan all Dx Plan of Treatment: Surgery note reviewed, appreciate recommendations. Agree with plan of care.
--- NOTE | 2022-05-01 08:43 | P.PN_ITS ---
Subjective *Date: 05/01/22 *Time: 08:43 Interval history: Patient tolerated having his NG tube out well. Is looking forward to drinking some broth today. Medical Exam Vital signs and Labs for Last 24 Hours: Temp Pulse Resp BP Pulse Ox 98.9 F 98 H 16 150/82 H 94 L 05/01/22 08:34 05/01/22 08:00 05/01/22 08:00 05/01/22 08:00 05/01/22 08:00 Laboratory Results - last 24 hr 04/30/22 14:35: WBC 15.5 H, RBC 3.63 L, Hgb 11.1 L, Hct 34.7 L, MCV 95.6 H, MCH 30.7, MCHC 32.1, RDW 15.4, Plt Count 436 H, MPV 10.4, Neut % (Auto) 84.0 H, Lymph % (Auto) 12.7, [place] % (Auto) 2.5, Eos % (Auto) 0.5, Baso % (Auto) 0.2, Neut # (Auto) 13.0 H, Lymph # (Auto) 2.0, [place] # (Auto) 0.4, Eos # (Auto) 0.1, Baso # (Auto) 0.0, Total Counted 100, Neutrophils % (Manual) 86 H, Lymphocytes % (Manual) 8 L, Monocytes % (Manual) 5, Eosinophils % (Manual) 1, Platelet Estimate Normal, RBC Morphology Normal 04/30/22 14:35: Sodium 139, Potassium 4.1, Chloride 104, Carbon Dioxide 29, Anion Gap 10.1, BUN 12 D, Creatinine 0.50 L D, Estimated Creat Clear 150, Estimated GFR 171, Est GFR ( Amer) 207 D, Glucose 91, Calcium 8.3 L 05/01/22 07:49: WBC 15.2 H, RBC 3.98 L, Hgb 12.2 L, Hct 37.8 L, MCV 95.0 H, MCH 30.7, MCHC 32.3, RDW 15.4, Plt Count 489 H, MPV 8.8, Neut % (Auto) 84.3 H, Lymph % (Auto) 12.4, [place] % (Auto) 1.4 L, Eos % (Auto) 1.7, Baso % (Auto) 0.2, Neut # (Auto) 12.8 H, Lymph # (Auto) 1.9, [place] # (Auto) 0.2, Eos # (Auto) 0.3, Baso # (Auto) 0.0 05/01/22 07:49: Sodium 131 L, Potassium 3.3 L, Chloride 97 L, Carbon Dioxide 28, Anion Gap 9.3, BUN 5 L D, Creatinine 0.50 L, Estimated Creat Clear 154, Estimated GFR 171, Est GFR ( Amer) 207, Glucose 86, Calcium 8.3 L, Total Bilirubin 0.6, AST 26, ALT 18 D, Alkaline Phosphatase 96, Total Protein 6.3, Albumin 3.2 L, Globulin 3.1, Albumin/Globulin Ratio 1.0 L I & O for Labs for Last 24 Hours: Intake & Output 04/28/22 04/29/22 04/30/22 05/01/22 11:59 11:59 11:59 11:59 Intake Total 3397 / 3397 1420 / 1420 2361 / 2361 Output Total 1200 / 1200 630 / 630 450 / 450 Balance 2197 / 2197 790 / 790 1911 / 1911 Weight 145 lb 1.027 oz 145 lb 1 oz 149 lb 4.8 oz Comment:: Alert. Pleasant. Lungs clear. Good air movement. Heart rate regular. Abdomen tender but soft. No distal edema. Alert and oriented x3. Assessment and Plan *Assessment and plan (1) Perforated abdominal viscus: Problem details: Overall, doing well status post exploration with Herberth patch. Follow-up UGI and remove nasogastric tube if no leak noted. If NG removed ice chips will be ordered. Status: Acute Category: Medical Code(s): R19.8 - Other specified symptoms and signs involving the digestive system and abdomen Plan Appreciate surgical input. Continue to advance diet as tolerated. Close follo w-up. Labs pending for this morning. Assessment and plan all Dx Plan of Treatment: Surgery note reviewed, appreciate recommendations. Agree with plan of care.
[2022-05-01 09:04] LABS: Lymphocytes % 12 % (10-50); Monocytes % 4 % (2-9); Neutrophils % 84 % (42-76); Platelet Estimate Normal; RBC Morphology Normal; Total Cells Counted 100
--- NOTE | 2022-05-01 09:06 | P.PN_ITS ---
Subjective Patient reports: no new complaints Narrative: Continues to have burning pain. UGI yesterday revealed no leak and NG out. Exam Data for Last 24 hours Vital signs and Labs for Last 24 Hours: Temp Pulse Resp BP Pulse Ox 98.9 F 98 H 16 150/82 H 94 L 05/01/22 08:34 05/01/22 08:00 05/01/22 08:00 05/01/22 08:00 05/01/22 08:00 Laboratory Results - last 24 hr 04/30/22 14:35: WBC 15.5 H, RBC 3.63 L, Hgb 11.1 L, Hct 34.7 L, MCV 95.6 H, MCH 30.7, MCHC 32.1, RDW 15.4, Plt Count 436 H, MPV 10.4, Neut % (Auto) 84.0 H, Lymph % (Auto) 12.7, [place] % (Auto) 2.5, Eos % (Auto) 0.5, Baso % (Auto) 0.2, Neut # (Auto) 13.0 H, Lymph # (Auto) 2.0, [place] # (Auto) 0.4, Eos # (Auto) 0.1, Baso # (Auto) 0.0, Total Counted 100, Neutrophils % (Manual) 86 H, Lymphocytes % (Manual) 8 L, Monocytes % (Manual) 5, Eosinophils % (Manual) 1, Platelet Estimate Normal, RBC Morphology Normal 04/30/22 14:35: Sodium 139, Potassium 4.1, Chloride 104, Carbon Dioxide 29, Anion Gap 10.1, BUN 12 D, Creatinine 0.50 L D, Estimated Creat Clear 150, Estimated GFR 171, Est GFR ( Amer) 207 D, Glucose 91, Calcium 8.3 L 05/01/22 07:49: WBC 15.2 H, RBC 3.98 L, Hgb 12.2 L, Hct 37.8 L, MCV 95.0 H, MCH 30.7, MCHC 32.3, RDW 15.4, Plt Count 489 H, MPV 8.8, Neut % (Auto) 84.3 H, Lymph % (Auto) 12.4, [place] % (Auto) 1.4 L, Eos % (Auto) 1.7, Baso % (Auto) 0.2, Neut # (Auto) 12.8 H, Lymph # (Auto) 1.9, [place] # (Auto) 0.2, Eos # (Auto) 0.3, Baso # (Auto) 0.0, Total Counted 100, Neutrophils % (Manual) 84 H, Lymphocytes % (Manual) 12, Monocytes % (Manual) 4, Platelet Estimate Normal, RBC Morphology Normal 05/01/22 07:49: Sodium 131 L, Potassium 3.3 L, Chloride 97 L, Carbon Dioxide 28, Anion Gap 9.3, BUN 5 L D, Creatinine 0.50 L, Estimated Creat Clear 154, Estimated GFR 171, Est GFR ( Amer) 207, Glucose 86, Calcium 8.3 L, Total Bilirubin 0.6, AST 26, ALT 18 D, Alkaline Phosphatase 96, Total Protein 6.3, Albumin 3.2 L, Globulin 3.1, Albumin/Globulin Ratio 1.0 L I & O for Last 24 hours: Intake & Output 04/28/22 04/29/22 04/30/22 05/01/22 11:59 11:59 11:59 11:59 Intake Total 3397 / 3397 1420 / 1420 2361 / 2361 Output Total 1200 / 1200 630 / 630 450 / 450 Balance 2197 / 2197 790 / 790 191 / 191 Weight 145 lb 1.027 oz 145 lb 1 oz 149 lb 4.8 oz *Routine Abdominal Exam Comments: Incision C/D/I Progress Note: A&P Assessment and plan (1) Perforated abdominal viscus: Problem details: Overall, doing well status post exploration with Herberth patch. Start limited clear liquids. Status: Acute
--- NOTE | 2022-05-01 10:09 | PC.NURSE ---
Rounded on pt, cleaned and straightened room. Pt in bed resting, no needs voiced at this time.
--- NOTE | 2022-05-01 12:42 | PC.NURSE ---
not wanting to use urnial
--- NOTE | 2022-05-01 13:42 | PC.NURSE ---
rounded on patient. patient is asleep but family is at bedside. currently they have no concerns or questions in regards to plan of care and medications. encouraged them to ring out if this was to change.
--- NOTE | 2022-05-01 15:20 | PC.NURSE ---
new iv placed in r forearm 20 gauge. tolerated well. iv in l arm removed. assisted patient to bathroom and bed sheets changed, and warm blanket given to patient. no concerns or questions. some tenderness noted to abdomen.
--- NOTE | 2022-05-01 18:04 | PC.NURSE ---
19 nmg intake on residential interior designer pump
--- NOTE | 2022-05-01 18:23 | PC.NURSE ---
Incision site open to air, clean dry and intact. VS stable on SLD INCLUSION TEACHER pump. Patient able to ambulate independently multiple times during the day. Patient able to tolerate clear liquids during the day. 1 tylenol tablet given for fever, patient did not want to take 2 tablet dose. Patient remained on room air and no other complaints noted.
--- NOTE | 2022-05-01 22:03 | PC.NURSE ---
pt uses the bathroom by himself, urine output na. He does not want to use a urinal.
[2022-05-02 04:00] VITALS: BP 133/72; PULSE 53; RESP 20; TEMP 37.3; O2SAT 94
--- NOTE | 2022-05-02 04:38 | PC.NURSE ---
Pt has rested intermittently throughout the night. Pt has been ambulating to bathroom independently and tolerating well. Pt remains on RA. Pt was andvanced to clear liquid diet and has tolerated well. Abdomen is soft and tender, midline incision is open to air and markus present, no s/s of infection present. Family at bedside throughout night.
[2022-05-02 04:45] VITALS: BMI 19.4
--- NOTE | 2022-05-02 06:31 | PC.NURSE ---
Cleared 13.9 mg of morphine from PIPE PROCESSOR pump.
[2022-05-02 06:56] LABS: Basophils % 0.3 % (0.1-2.0); Eosinophils # 0.3 K/mm3 (0.0-0.4); Eosinophils % 1.9 % (0.1-12.0); Hemoglobin 11.4 g/dL (14.1-18.0); Lymphocytes # 1.5 K/mm3 (0.7-4.5); Lymphocytes % 10.9 % (10-50); Mean Corpuscular HGB Conc 31.6 g/dL (31.8-35.4); Mean Corpuscular Hemoglobin 29.8 pg (27.0-31.2); Mean Corpuscular Volume 94.2 fl (80-94); Mean Platelet Volume 8.1 fl (7.4-10.4); Monocytes # 0.3 K/mm3 (0.1-1.0); Monocytes % 2.2 % (1.7-9.3); Neutrophils # 11.8 K/mm3 (1.8-7.8); Neutrophils % 84.8 % (37.0-80.0); Platelet Count 394 K/mm3 (142-424); Red Blood Count 3.82 M/mm3 (4.60-6.20); Red Cell Distribution Width 15.3 % (11.5-17.5); White Blood Count 13.9 K/mm3 (4.8-10.8)
[2022-05-02 07:21] LABS: Anion Gap 10.3 mEq/L (5-15); Blood Urea Nitrogen 3 mg/dl (9-20); Calcium 7.9 mg/dl (8.4-10.2); Carbon Dioxide 27 mmol/L (22.0-30.0); Chloride 96 mmol/L (98-107); Creatinine Clearance Estimated 148 mL/min (50-200); Estimated Glomerular Filt Rate 171 ml/min (>60); GFR (African American) 207 ML/MIN (>60); Glucose 70 mg/dl (74-100); Potassium 3.3 mmoL/L (3.5-5.1); Sodium 130 mmol/L (136-145)
--- NOTE | 2022-05-02 07:57 | EXP.ACUTE.PN ---
Subjective *Date: 05/02/22 *Time: 07:57 Medical Exam Vital signs and Labs for Last 24 Hours: Temp Pulse Resp BP Pulse Ox 99.2 F 53 L 20 133/72 94 L 05/02/22 04:00 05/02/22 04:00 05/02/22 04:00 05/02/22 04:00 05/02/22 04:00 Laboratory Results - last 24 hr 05/01/22 07:49: WBC 15.2 H, RBC 3.98 L, Hgb 12.2 L, Hct 37.8 L, MCV 95.0 H, MCH 30.7, MCHC 32.3, RDW 15.4, Plt Count 489 H, MPV 8.8, Neut % (Auto) 84.3 H, Lymph % (Auto) 12.4, [place] % (Auto) 1.4 L, Eos % (Auto) 1.7, Baso % (Auto) 0.2, Neut # (Auto) 12.8 H, Lymph # (Auto) 1.9, [place] # (Auto) 0.2, Eos # (Auto) 0.3, Baso # (Auto) 0.0, Total Counted 100, Neutrophils % (Manual) 84 H, Lymphocytes % (Manual) 12, Monocytes % (Manual) 4, Platelet Estimate Normal, RBC Morphology Normal 05/01/22 07:49: Sodium 131 L, Potassium 3.3 L, Chloride 97 L, Carbon Dioxide 28, Anion Gap 9.3, BUN 5 L D, Creatinine 0.50 L, Estimated Creat Clear 154, Estimated GFR 171, Est GFR ( Amer) 207, Glucose 86, Calcium 8.3 L, Total Bilirubin 0.6, AST 26, ALT 18 D, Alkaline Phosphatase 96, Total Protein 6.3, Albumin 3.2 L, Globulin 3.1, Albumin/Globulin Ratio 1.0 L 05/02/22 06:30: WBC 13.9 H, RBC 3.82 L, Hgb 11.4 L, Hct 36.0 L, MCV 94.2 H, MCH 29.8, MCHC 31.6 L, RDW 15.3, Plt Count 394, MPV 8.1, Neut % (Auto) 84.8 H, Lymph % (Auto) 10.9, [place] % (Auto) 2.2, Eos % (Auto) 1.9, Baso % (Auto) 0.3, Neut # (Auto) 11.8 H, Lymph # (Auto) 1.5, [place] # (Auto) 0.3, Eos # (Auto) 0.3, Baso # (Auto) 0.0 05/02/22 06:30: Sodium 130 L, Potassium 3.3 L, Chloride 96 L, Carbon Dioxide 27, Anion Gap 10.3, BUN 3 L D, Creatinine 0.50 L, Estimated Creat Clear 148, Estimated GFR 171, Est GFR ( Amer) 207, Glucose 70 L, Calcium 7.9 L I & O for Labs for Last 24 Hours: Intake & Output 04/29/22 04/30/22 05/01/22 05/02/22 11:59 11:59 11:59 11:59 Intake Total 3397 / 3397 1420 / 1420 2361 / 2361 3686 / 3686 Output Total 1200 / 1200 630 / 630 450 / 450 0 / 0 Balance 2197 / 2197 790 / 790 1911 / 1911 3686 / 3686 Weight 145 lb 1.027 oz 145 lb 1 oz 149 lb 4.8 oz 143 lb 9.6 oz Comment:: Patient is pleasant, alert. Lungs clear, heart rate regular. Abdominal exam per surgery. Eating broth and Jell-O well. No edema. Assessment and Plan Assessment and plan all Dx Plan of Treatment: Surgery note reviewed, appreciate recommendations. Agree with plan of care.
[2022-05-02 08:00] VITALS: BP 141/79; PULSE 96; RESP 22; TEMP 36.9; O2SAT 93
[2022-05-02 12:00] VITALS: BP 153/85; PULSE 100; RESP 20; TEMP 37; O2SAT 93
--- NOTE | 2022-05-02 12:11 | DIET.NUTRFU ---
handout provided and reviewed for GI soft diet, also reviewed full liquids is plans for discharge. Patient's normal diet at home is hard on stomach lots of fatty/greasy foods with coffee and Mt Dew. was present during diet review and she said she would help him limit items at least until follow-up apt.
--- NOTE | 2022-05-02 12:23 | P.PN_ITS ---
Subjective Narrative: Patient has been on clear liquid diet. He has been using the HOLLOW HANDLE BENCH WORKER somewhat liberally. Tolerating clear liquids without issue. Has had multiple loose stools. Exam Data for Last 24 hours Vital signs and Labs for Last 24 Hours: Temp Pulse Resp BP Pulse Ox 98.4 F 96 H 22 141/79 H 93 L 05/02/22 08:00 05/02/22 08:00 05/02/22 08:00 05/02/22 08:00 05/02/22 08:00 Laboratory Results - last 24 hr 05/02/22 06:30: WBC 13.9 H, RBC 3.82 L, Hgb 11.4 L, Hct 36.0 L, MCV 94.2 H, MCH 29.8, MCHC 31.6 L, RDW 15.3, Plt Count 394, MPV 8.1, Neut % (Auto) 84.8 H, Lymph % (Auto) 10.9, [place] % (Auto) 2.2, Eos % (Auto) 1.9, Baso % (Auto) 0.3, Neut # (Auto) 11.8 H, Lymph # (Auto) 1.5, [place] # (Auto) 0.3, Eos # (Auto) 0.3, Baso # (Auto) 0.0 05/02/22 06:30: Sodium 130 L, Potassium 3.3 L, Chloride 96 L, Carbon Dioxide 27, Anion Gap 10.3, BUN 3 L D, Creatinine 0.50 L, Estimated Creat Clear 148, Estimated GFR 171, Est GFR ( Amer) 207, Glucose 70 L, Calcium 7.9 L I & O for Last 24 hours: Intake & Output 04/30/22 05/01/22 05/02/22 05/03/22 11:59 11:59 11:59 11:59 Intake Total 1420 / 1420 2361 / 2361 3926 / 3926 Output Total 630 / 630 450 / 450 0 / 0 Balance 790 / 790 191 / 191 3926 / 3926 Weight 145 lb 1 oz 149 lb 4.8 oz 143 lb 9.6 oz *Routine Abdominal Exam Abdominal: Present soft Comments: Incision clean and intact Progress Note: A&P Assessment and plan (1) Perforated abdominal viscus: Status: Acute Assessment and plan: Advance to full liquid diet. DC HOLLOW HANDLE BENCH WORKER. Start oral pain medicines with supplemental morphine if needed. I will give another dose or 2 of Invanz to continue postoperative antibiotics antibiotic due to his mild leukocytosis although this is improving. He does have borderline hypokalemia. Continue to monitor. Anticipate discharge in 24 to 48 hours on oral PPI.
--- NOTE | 2022-05-02 15:03 | PC.NURSE ---
rounded o patient. no concerns or questions. patient assisted to bathroom. family at bedside. straightened up bed. no complaints. encouraged him to ring out with any needs or concern.s
[2022-05-02 16:00] VITALS: BP 148/84; PULSE 78; RESP 20; TEMP 36.4; O2SAT 93
[2022-05-02 20:00] VITALS: BP 127/61; PULSE 88; RESP 18; TEMP 36.7; O2SAT 92
--- NOTE | 2022-05-02 20:17 | PC.NURSE ---
Pt is A/Ox4. His midline incision is REGISTERED DENTAL HYGIENIST and no signs of infection. He has been up to the bathroom independent multiple times today. He was advanced from clear to full liquid diet and tolerated it well.
[2022-05-03] VITALS: BP 106/59; PULSE 75; RESP 16; TEMP 36.7; O2SAT 91
[2022-05-03 04:00] VITALS: BP 115/58; PULSE 79; RESP 16; TEMP 37; O2SAT 92
--- NOTE | 2022-05-03 05:07 | PC.NURSE ---
no change from previous assessment, midline incision with markus open to air, no drainage noted, no edema, pt medicated once for pain, pt ambulates without difficulty by self, no edema, pt states loose bm today, active bowel sounds noted, no other issues or concerns at this time.
[2022-05-03 07:52] LABS: Basophils % 0.1 % (0.1-2.0); Eosinophils # 0.2 K/mm3 (0.0-0.4); Eosinophils % 1.6 % (0.1-12.0); Hematocrit 34.1 % (42.0-52.0); Hemoglobin 10.8 g/dL (14.1-18.0); Lymphocytes # 1.3 K/mm3 (0.7-4.5); Lymphocytes % 12.3 % (10-50); Mean Corpuscular HGB Conc 31.5 g/dL (31.8-35.4); Mean Corpuscular Hemoglobin 29.6 pg (27.0-31.2); Mean Corpuscular Volume 93.8 fl (80-94); Mean Platelet Volume 8.9 fl (7.4-10.4); Monocytes # 0.4 K/mm3 (0.1-1.0); Monocytes % 4.1 % (1.7-9.3); Neutrophils # 8.6 K/mm3 (1.8-7.8); Platelet Count 436 K/mm3 (142-424); Red Blood Count 3.64 M/mm3 (4.60-6.20); White Blood Count 10.5 K/mm3 (4.8-10.8)
[2022-05-03 07:56] LABS: Anion Gap 9.1 mEq/L (5-15); Calcium 7.5 mg/dl (8.4-10.2); Carbon Dioxide 28 mmol/L (22.0-30.0); Chloride 99 mmol/L (98-107); Creatinine Clearance Estimated 191 mL/min (50-200); Estimated Glomerular Filt Rate 221 ml/min (>60); GFR (African American) 267 ML/MIN (>60); Glucose 94 mg/dl (74-100); Potassium 3.1 mmoL/L (3.5-5.1); Sodium 133 mmol/L (136-145)
[2022-05-03 07:58] LABS: Blood Urea Nitrogen < 2 mg/dl (9-20)
[2022-05-03 08:00] VITALS: BP 143/86; PULSE 94; RESP 24; TEMP 36.4; O2SAT 93
--- NOTE | 2022-05-03 11:16 | EXP.SURG.PN ---
Subjective Patient reports: no new complaints Exam Data for Last 24 hours Vital signs and Labs for Last 24 Hours: Temp Pulse Resp BP Pulse Ox 97.6 F 94 H 24 143/86 H 93 L 05/03/22 08:00 05/03/22 08:00 05/03/22 08:00 05/03/22 08:00 05/03/22 08:00 Laboratory Results - last 24 hr 05/03/22 07:03: WBC 10.5, RBC 3.64 L, Hgb 10.8 L, Hct 34.1 L, MCV 93.8, MCH 29.6, MCHC 31.5 L, RDW 15.0, Plt Count 436 H, MPV 8.9, Neut % (Auto) 82.0 H, Lymph % (Auto) 12.3, [place] % (Auto) 4.1, Eos % (Auto) 1.6, Baso % (Auto) 0.1, Neut # (Auto) 8.6 H, Lymph # (Auto) 1.3, [place] # (Auto) 0.4, Eos # (Auto) 0.2, Baso # (Auto) 0.0 05/03/22 07:03: Sodium 133 L, Potassium 3.1 L, Chloride 99, Carbon Dioxide 28, Anion Gap 9.1, BUN < 2 L D, Creatinine 0.40 L, Estimated Creat Clear 191, Estimated GFR 221, Est GFR ( Amer) 267 D, Glucose 94, Calcium 7.5 L I & O for Last 24 hours: Intake & Output 04/30/22 05/01/22 05/02/22 05/03/22 11:59 11:59 11:59 11:59 Intake Total 1420 / 1420 2361 / 2361 3926 / 3926 2609 / 2609 Output Total 630 / 630 450 / 450 0 / 0 2 / 2 Balance 790 / 790 1911 / 191 3926 / 3926 2607 / 2607 Weight 145 lb 1 oz 149 lb 4.8 oz 143 lb 9.6 oz 148 lb 2 oz Constitutional Constitutional: no acute distress *Routine Respiratory Exam Respiratory: Absent respiratory distress *Routine Cardiovascular Exam Cardiovascular: Absent tachycardia *Routine Abdominal Exam Abdominal: Present soft Comments: Incision clean, dry, and intact. No erythema. *Routine Neurological Exam Neurological: Present alert Routine Psychiatric Exam Psychiatric: Present normal affect Progress Note: A&P Assessment and plan (1) Perforated abdominal viscus: Status: Acute Assessment and plan: Overall, doing well status post exploratory laparotomy with Herberth patch. Remove one half of markus Very slowly advance to pur?ed/soft diet Stable from surgical standpoint for discharge with close outpatient follow-up
--- NOTE | 2022-05-03 13:36 | EXP.DC.SUM ---
General Admission date:: 04/28/22 Discharge date: 05/03/22 HPI HPI HPI: Patient is a 56-year-old smoker with COPD from [place]. He states that when he woke up this afternoon at approximately 1 PM he was noted to have severe abdominal pain. This was mostly in the upper abdomen with some radiation to his shoulder. It moved around and migrated somewhat. He presented to the emergency department at . He was found to have findings of significant pain which was difficult to control and acute abdomen. He underwent work-up including CT scan which revealed findings consistent with perforated duodenal ulcer. Patient has no known ulcer history. He does have symptoms of GERD and reflux. He states that he drinks daily. Hospital Course Hospital Course Hospital Course: 56-year-old male who presented with acute abdomen.? Found to have perforated duodenal bulb ulcer.? Surgery consulted and perforation/acute abdomen surgically managed, see notes for full details of repair/patch. Patient tolerated the procedure well. Was started on empiric antibiotics and placed on bowel rest with NG tube. Additionally started on pantoprazole twice daily. As bowel function returned, diet was resumed and gradually advanced to regular diet by day of discharge. Patient remained hemodynamically stable. Afebrile. Tolerating oral medications and having bowel movements. Medically stable for discharge home with close follow-up in the outpatient setting. Labs gradually improved as well during hospitalization with improvement in white cell count. Discharged in the care of his . Close follow-up with PCP and surgery. Exam Data for Last 24 hours Vital signs and Labs for Last 24 Hours: Temp Pulse Resp BP Pulse Ox 97.6 F 94 H 24 143/86 H 93 L 05/03/22 08:00 05/03/22 08:00 05/03/22 08:00 05/03/22 08:00 05/03/22 08:00 Laboratory Results - last 24 hr 05/03/22 07:03: WBC 10.5, RBC 3.64 L, Hgb 10.8 L, Hct 34.1 L, MCV 93.8, MCH 29.6, MCHC 31.5 L, RDW 15.0, Plt Count 436 H, MPV 8.9, Neut % (Auto) 82.0 H, Lymph % (Auto) 12.3, [place] % (Auto) 4.1, Eos % (Auto) 1.6, Baso % (Auto) 0.1, Neut # (Auto) 8.6 H, Lymph # (Auto) 1.3, [place] # (Auto) 0.4, Eos # (Auto) 0.2, Baso # (Auto) 0.0 05/03/22 07:03: Sodium 133 L, Potassium 3.1 L, Chloride 99, Carbon Dioxide 28, Anion Gap 9.1, BUN < 2 L D, Creatinine 0.40 L, Estimated Creat Clear 191, Estimated GFR 221, Est GFR ( Amer) 267 D, Glucose 94, Calcium 7.5 L I & O for Last 24 hours: Intake & Output 04/30/22 05/01/22 05/02/22 05/03/22 23:59 23:59 23:59 23:59 Intake Total 1065 / 1065 3444 / 3444 3389 / 3389 998 / 998 Output Total 580 / 580 0 / 0 Balance 485 / 485 3444 / 3444 3388 / 3388 997 / 997 Weight 65.799 kg 67.721 kg 65.136 kg 67.188 kg Constitutional Constitutional: no acute distress, thin and cooperative *Routine HEENT Exam Head: Present normocephalic Eye: Present EOMI and PERRL ENT: Present mucous membranes moist *Routine Neck Exam Neck: Present supple; Absent lymphadenopathy *Routine Respiratory Exam Respiratory: Present CTA bilaterally and prolonged expiratory phase *Routine Cardiovascular Exam Cardiovascular: Present RRR; Absent murmur *Routine Abdominal Exam Abdominal: Present soft, normoactive bowel sounds and tenderness Comments: healing midline surgical incision with markus in place. No erythema, drainage, warmth, or heat. *Routine Rectal Exam Patient deferred: visual exam *Routine Exam Patient deferred: penile exam *Routine Extremities Exam Extremities: Absent cyanosis, clubbing or edema *Routine Skin Exam Skin: Present warm; Absent rash *Routine Neurological Exam Neurological: Present alert and oriented X3 Results Data Completed and Pending Labs on day of discharge: Labs from last 24 hours 05/03/22 05/03/22 07:03 07:03 WBC 10.5 RBC 3.64 L Hgb 10.8 L Hct 34.1 L MCV 93.8 MCH 29.6 MCHC 31.5 L RDW 15.0 Plt Count
--- NOTE | 2022-05-03 13:58 | PC.NURSE ---
Pt called she went to go get his medication and run some errands and she will back.
--- NOTE | 2022-05-03 14:30 | PC.NURSE ---
Removed half of markus that were present in the midline incision of the abdomen. Placed steri strips where the existing markus were placed.
--- NOTE | 2022-05-03 14:45 | HMH.PHAINT1 ---
Pharmacy Intervention Comments: DISCHARGE MEDICATION COUNSELING PROVIDED. DISCUSSED HOLDING HOME DOSE OF [place] WHILE TAKING THE NEW RX FOR HYDROCODONE/APAP Q6HP, STOPPING THE MELOXICAM, AND START SHORT-COURSE AUGMENTIN (TAKE TWICE DAILY, WITH FOOD, MAY CAUSE UPSET STOMACH, DIARRHEA, NAUSEA, MAY WANT TO CONSIDER TAKING PROBIOTIC OR YOGURT WITH ACTIVE CULTURES) AND PROTONIX (TAKE TWICE DAILY, FOR STOMACH/REFLUX) PATIENT AND VERBALIZED NO QUESTIONS AT THIS TIME.
--- NOTE | 2022-05-05 07:34 | P.PNANES_ITS ---
[facility] Anesthesia Record Part II Anesthesia Record Part II Discharge Time: 21:00 Destination: Second Floor PACU nurse assessment reviewed?: Yes Patient Condition:: Good Anesthesia Complications:: None Swallowing reflex intact?: Yes Cyanosis?: No Blood Pressure: 132/76 Pulse Rate: 90 Temperature: 98.7 F Mental Status: Alert & Oriented Pain level:: 10 Nausea and/or vomitting:: None Intake, IV Amount: 0
[2022-05-05 07:35] VITALS: BP 132/76; PULSE 90; TEMP 37.1
--- NOTE | 2022-05-06 14:11 | CARE MANAGER ---
Spoke with patient regarding post-discharge phone interview, she states that patient is fine and has no needs at this time. Patient had post-discharge appointment today with Dr. Bone will see Dr. Read next week.
== END 2022-05-03 16:05 | disposition home or self-care (01) | DRG 329 ==
LOC: ER 16:02 → SDC 17:48 → 2ND 18:30
PROVIDERS: Internal Medicine Adolescent Medicine; Surgery; Admitting Provider Family Medicine; Emergency Provider Emergency Medicine; PCP Internal Medicine Adolescent Medicine; Visit Provider Internal Medicine Adolescent Medicine
PROC: 0DU907Z Supplement Duodenum with Autologous Tissue Substitute, Open Approach (ICD-10-PCS; CPT 49000; principal; 2022-04-28 18:30)
DX: K26.6 Chronic or unspecified duodenal ulcer with both hemorrhage and perforation (principal); K65.9 Peritonitis, unspecified; F17.210 Nicotine dependence, cigarettes, uncomplicated; I10 Essential (primary) hypertension; M19.90 Unspecified osteoarthritis, unspecified site; J43.9 Emphysema, unspecified; G89.4 Chronic pain syndrome; K21.9 Gastro-esophageal reflux disease without esophagitis
CPT/HCPCS: 43840; 36415; 74177; 74240; 80048; 80053; 81001; 83690; 83735; 85007; 85025; 99285; C9803; J1335; J2405; J2710; Q9967; U0003; U0005

== ENCOUNTER → 2022-06-11 09:39 | Outpatient (CLI) | payer MEDICARE, SELFPAY ==
--- NOTE | 2022-06-11 09:46 | CT_ITS ---
FINAL REPORT TECHNIQUE: After the administration of intravenous contrast, axial images through the chest were performed by computed tomography.This study was performed with techniques to keep radiation doses as low as reasonably achievable, (ALARA). Individualized dose reduction techniques using automated exposure control or adjustment of mA and/or kV according to the patient''s size were employed. CLINICAL HISTORY: PULMONARY NODULE L COMPARISON: May 03, 2019 FINDINGS: There are multiple enlarged mediastinal and hilar lymph nodes many of which are calcified and visually larger. There are mildly enlarged bilateral axillary lymph nodes measuring up to 23 mm in the right axilla. The heart size is normal. There is no pericardial or pleural effusion. There is a stable 4 mm nodule in the left lung apex. There are mild ground-glass opacities in the right middle lobe, lingula, and bilateral upper lobes that may represent edema or alveolitis. A 3 mm posterior right upper lobe nodule on image 29 is stable. There are multiple calcified granulomas. Images through the upper abdomen demonstrate mild gallbladder wall thickening. IMPRESSION: Mediastinal, hilar and bilateral axillary lymph nodes could be reactive, granulomatous disease, or neoplastic involvement. Stable pulmonary nodules. Mild ground-glass opacities as described may represent edema or alveolitis. Reviewed, Interpreted and Dictated by Garrett Faria III, MD Transcribed by Marty Parra Authenticated and [facility]
[2022-06-11 10:34] LABS: Blood Urea Nitrogen 7 mg/dl (9-20); Estimated Glomerular Filt Rate 116 ml/min (>60); GFR (African American) 140 ML/MIN (>60)
== END ==
PROVIDERS: PCP Internal Medicine Adolescent Medicine; Visit Provider Internal Medicine Adolescent Medicine
DX: R91.1 Solitary pulmonary nodule (principal)
CPT/HCPCS: 36415; 71260; 82565; 84520; Q9967

== ENCOUNTER 2022-08-22 11:29 | Day surgery (SDC) | payer MEDICARE, SELFPAY ==
[2022-08-22 12:04] VITALS: BP 156/98; PULSE 108; RESP 18; TEMP 36.5; O2SAT 98; BMI 18.1
[2022-08-22 12:16] VITALS: O2SAT 98
--- NOTE | 2022-08-22 12:22 | P.PN_ITS ---
[facility] Disclaimer: The information contained in this section may have been updated after the patient was seen, as this information can be updated by other users. Medical History Arthritis COPD (chronic obstructive pulmonary disease) Duodenal ulcer with perforation GERD (gastroesophageal reflux disease) History of infection HTN (hypertension) Perforated abdominal viscus Surgical perforation of duodenum Surgical History History of cervical spinal surgery Family History Grandfather History of cancer Father History of diabetes mellitus Social History Smoking Status: Current every day smoker tobacco type: cigarettes packs per day: 1 second hand exposure: No alcohol intake: never substance use type: denies use current occupational status: disabled Travel in the last 8 weeks: None household members: spouse housing: house current occupational exposures/hazards: No caffeine: Yes [facility] Anesthesia Checklist Patient Identification Patient Identification: Arm Band and Verbal (Name & ) Structural Data Admitted From: Home Planned Operative Procedure/s: EGD/Colonoscopy Consent for Planned Operative Procedure(s) Verified: Yes NPO Status Verified Time NPO: 00:00 Additional verifications Anesthesia Reactions: No Hx Blood Transfusions: No Airway Assessment C-Spine Mobility Assessed: Yes TMJ Mobility Assessed: Yes Dentition: Poor Dentition Neurological Assessment Level of Consciousness: Awake Hx Seizures: No Numbness or tingling in extremities: No Anesthesia Plan Anesthesia Risk discussed: Yes Anesthesia Plan: Verified ASA Class: III Anesthesia Type: MAC
[2022-08-22 13:30] VITALS: BP 105/69; PULSE 81; RESP 16; TEMP 36.2; O2SAT 98
--- NOTE | 2022-08-22 13:30 | P.PCN_ITS ---
Procedure: Date: 08/22/22 Patient Date of :: 1965 Procedure Performed:: EGD Colonoscopy with numerous polypectomy Indications:: Patient is a 56-year-old male. He had presented with peritonitis and underwent laparotomy for perforated duodenal bulb ulcer on 04/28/2022. He was scheduled for a follow-up EGD. His primary care provider asked for colonoscopy as well as patient was past due for prior colonoscopy. He had a colonoscopy done by Dr. Keita on 05/31/2014 and he had several polyps removed. I have obtained the pathology and he had tubular adenoma and a serrated adenoma. 3-year follow-up colonoscopy was recommended at that time in 2013. Performing Provider:: Garrett Read MD Referring Provider:: Ede Bone MD Sedation:: MAC sedation Procedure:: Patient was taken to endoscopy procedure room. He was positioned in lateral decubitus position. Adequate intravenous sedation was achieved with anesthesia titration of propofol. Attention was first turned to upper endoscopy. Olympus endoscope was inserted via the oropharynx. Esophagus was cannulated and the endoscope was advanced. There were findings of distal esophagitis with some erosions and possible Julien's esophagus. Gastroesophageal junction was encountered at approximately 38 cm. Stomach was cannulated and insufflated. Retroflexion revealed a small to moderate sliding hiatal hernia. There was diffuse gastropathy. Gastric mucosal biopsy was obtained for CLOtest for H. pylori. Pylorus was traversed. Duodenum appeared relatively unremarkable with no evidence of any unhealed ulcer. Gastric mucosal biopsies obtained for histopathologic analysis. A couple biopsies were obtained at the gastroesophageal junction. Distal esophageal biopsies were obtained. Endoscope was withdrawn. Next attention was turned to colonoscopy. Digital examination was performed which was unremarkable. Variable stiffness Olympus colonoscope was inserted via the anus. Is advanced to the cecum. Preparation was good. Ileocecal valve and appendiceal orifice were clearly identified. Colonoscope was slowly withdrawn through the colon with careful surveillance. He had essentially too numerous to count hyperplastic appearing polyps throughout the colon. Tiny cecal polyps were removed with biopsy forceps. These did appear adenomatous. Proximal transverse colon polyp x2 removed with biopsy forceps. Mid transverse colon polyp removed with snare. This appeared adenomatous. Mid to distal transverse colon polyp removed with snare. Descending colon polyp x2 removed with biopsy. Sigmoid colon polyp x7 removed with snare. Rectosigmoid polyp x4 removed with biopsy forceps. Once again, the large majority of these appeared to be sessile hyperplastic. Larger ones were removed and sampled. Retroflexion within the r ectum revealed no evidence of any pathologic internal hemorrhoids. Colonoscope was withdrawn. Findings:: Evidence of some erosive esophagitis Possible Julien's esophagus Gastroesophageal junction at 38 cm Small to moderate sliding hiatal hernia Moderate diffuse gastropathy Too numerous to count polyps as noted above. Large majority of these appeared hyperplastic Recommendations:: Follow-up colonoscopy will be pending pathology. Most of these are hyperplastic and may be able to withhold from colonoscopy for 2 or 3 years. However if he has several serrated adenomas he may need repeat colonoscopy as early as 6 to 12 months. Complications:: None immediate Estimated blood obtained (mL): 2
[2022-08-22 13:40] VITALS: BP 111/66; PULSE 94; RESP 16; O2SAT 98
[2022-08-22 13:50] VITALS: BP 123/73; PULSE 81; RESP 15; O2SAT 100
[2022-08-22 14:18] VITALS: BP 131/78; PULSE 80; RESP 16; O2SAT 99
== END 2022-08-22 14:18 | disposition home or self-care (01) ==
PROVIDERS: PCP Internal Medicine Adolescent Medicine; Visit Provider Surgery
PROC: 0DJ08ZZ Inspection of Upper Intestinal Tract, Via Natural or Artificial Opening Endoscopic (ICD-10-PCS; CPT 43235; principal; 2022-08-22 12:30)
DX: Z12.11 Encounter for screening for malignant neoplasm of colon (principal); Z86.010 Personal history of colon polyps; F17.210 Nicotine dependence, cigarettes, uncomplicated; D12.6 Benign neoplasm of colon, unspecified
CPT/HCPCS: 43239; 45380; 45385; 87339; 88305; J2704

== ENCOUNTER → 2022-09-30 12:41 | Outpatient (CLI) | payer MEDICARE, SELFPAY ==
--- NOTE | 2022-09-30 13:03 | CT_ITS ---
FINAL REPORT CLINICAL HISTORY: LUNG NODULE COMPARISON: 06/11/2022 FINDINGS: CT CHEST ABDOMEN WITH CONTRAST TECHNIQUE: Axial CT images were performed through the chest with IV contrast. Coronal reformatted images were submitted. This study was performed with techniques to keep radiation doses as low as reasonably achievable (ALARA). Individualized dose reduction techniques using automated exposure control or adjustment of mA and/or kV according to the patient's size were employed. CHEST: There are enlarged, partially calcified lymph nodes of the mediastinum compatible with old granulomatous disease. There are stable nonspecific mild bilateral axillary adenopathy. The largest lymph node measures 2.5 cm in the right axilla. The heart size is normal. There is no pericardial or pleural effusion. There are scattered pulmonary nodules, vast majority are calcified and compatible with granulomas. No suspicious pulmonary nodule. There are changes of emphysema. The ground-glass opacities from prior exam have resolved compatible with resolved pneumonia. There has been interval development of a mild superior endplate compression fracture of L1. Although this is new in appearance since the prior exam it is favored to be chronic. IMPRESSION: 1. Resolved ground-glass opacities. 2. Benign-appearing nodules, most of which are calcified. 3. Nonspecific axillary adenopathy. 4. Interval development of mild superior endplate compression fracture of L1. Reviewed, Interpreted and Dictated by Mary Carmen Rowan MD Transcribed by Nohemi De La Torre Authenticated and [facility]
[2022-09-30 13:19] LABS: Blood Urea Nitrogen 8 mg/dl (9-20); Estimated Glomerular Filt Rate 116 ml/min (>60); GFR (African American) 140 ML/MIN (>60)
== END ==
LOC: RAD 12:42
PROVIDERS: PCP Internal Medicine Adolescent Medicine; Visit Provider Nurse Practitioner Family
DX: R91.1 Solitary pulmonary nodule (principal)
CPT/HCPCS: 36415; 71260; 82565; 84520; Q9967

== ENCOUNTER 2022-10-13 13:00 | Outpatient (RCR) | payer MEDICARE, SELFPAY | END 2022-11-17 13:23 | disposition home or self-care (01) | LOC: PT 13:00 | PROVIDERS: PCP Internal Medicine Adolescent Medicine; Visit Provider Orthopaedic Surgery | DX: M79.641 Pain in right hand (principal) | CPT/HCPCS: 97010; 97018; 97110; 97140; 97163 ==

== ENCOUNTER → 2022-12-24 13:21 | Outpatient (CLI) | payer MEDICARE, SELFPAY ==
--- NOTE | 2022-12-24 13:21 | US_ITS ---
FINAL REPORT CLINICAL HISTORY: swollen lymph node FINDINGS: Limited sonographic images of the right axilla were obtained. There are multiple enlarged right axillary nodes measuring up to 3.1 cm. Since there is fatty amrita, findings are favored to represent reactive nodes. IMPRESSION: Right axillary nodes, favor reactive. Reviewed, Interpreted and Dictated by Garrett Faria III, MD Transcribed by Sarah Gregg Authenticated and . [facility]
== END ==
LOC: RAD 13:21
PROVIDERS: PCP Internal Medicine Adolescent Medicine; Visit Provider Surgery
DX: R59.9 Enlarged lymph nodes, unspecified (principal)
CPT/HCPCS: 76882

== ENCOUNTER 2024-11-08 09:51 | Outpatient (CLI) | payer MEDICARE, SELFPAY ==
--- NOTE | 2024-11-08 09:54 | CT_ITS ---
FINAL REPORT CLINICAL HISTORY: current smoker, 2 ppd x 47 years COMPARISON: 05/03/2019 FINDINGS: CT CHEST LOW DOSE SCREENING HISTORY: Screening exam for lung cancer. DOSE: CTDI vol: 2.90 mGy, DLP: 118.55 mGy*cm TECHNIQUE: Axial CT without IV contrast administration using low dose protocol. This study was performed with techniques to keep radiation doses as low as reasonably achievable, (ALARA). Individualized dose reduction techniques using automated exposure control or adjustment of mA and/or kV according to the patient's size were employed. No acute lung disease is present. There is a 2 mm nodule in the left upper lobe along the major fissure well-seen on image 44 of series 3 and stable. There are small biapical nodules measuring up to 3 mm which are unchanged. There is evidence of calcified granulomatous disease. Progressive interstitial scarring is noted in the lingula and right middle lobe. Given the location, this could be due to recurrent aspiration. No pleural or pericardial effusion is seen. No adenopathy or mass lesion is present. IMPRESSION: Stable lung nodules as above. LUNG RADS CATEGORY 2 RECOMMENDATION: 12 month LDCT follow up Reviewed, Interpreted and Dictated by Mary Carmen Rwoan MD Transcribed by Leisa Chapa Authenticated and [facility]
--- NOTE | 2024-11-08 09:55 | US_ITS ---
FINAL REPORT CLINICAL HISTORY: HX OF TOBACCO FINDINGS: ULTRASOUND ABDOMINAL AORTA Findings: Sagittal and transverse images with Doppler exam was performed of the aorta. There is no evidence of abdominal aortic aneurysm. Aorta measures up to 1.8 cm. No evidence of plaque disease is noted. Proximal iliac vessels are normal in caliber. Aorta is patent by Doppler exam without gross stenosis. IMPRESSION: No evidence of aortic aneurysm Reviewed, Interpreted and Dictated by Mary Carmen Rowan MD Transcribed by Leisa Chapa Authenticated and [facility]
== END 2024-11-08 23:59 | disposition home or self-care (01) ==
LOC: RAD 09:52
PROVIDERS: PCP Internal Medicine Adolescent Medicine; Visit Provider Internal Medicine Adolescent Medicine
DX: Z87.891 Personal history of nicotine dependence (principal)
CPT/HCPCS: 71271; 76705

== ENCOUNTER → 2024-12-09 06:56 | Day surgery (SDC) | payer MEDICARE, SELFPAY ==
[2024-12-06 11:44] VITALS: BMI 17.6
[2024-12-09 07:23] VITALS: BP 179/108; PULSE 108; RESP 18; O2SAT 100
--- NOTE | 2024-12-09 07:49 | P.HP_ITS ---
HPI HPI HPI: Patient is a 59-year-old male who presents for follow-up colonoscopy. I had seen him in the past for perforated duodenal bulb ulcer and he presented with peritonitis and underwent laparotomy on 04/28/2022. He had a follow-up EGD done on 08/22/2022. He also underwent colonoscopy at that time. He had previous colon[place] [address] Fitz Santos and had a tubular adenoma and a serrated adenoma removed. Colonoscopy on 08/22/2022 revealed too numerous to count polyps. Pathology at that time revealed findings of intestinal metaplasia on EGD. Polyps revealed numerous tubular adenomas and mostly sessile serrated polyps. Recommendations given this pathology was for repeat colonoscopy in 9 months after his colonoscopy on 08/22/2022. Also, given his history of perforated ulcer and intestinal metaplasia I recommend continuation of proton pump inhibitors and repeat upper endoscopy in August 2024. He has not been taking proton pump inhibitors but states that he takes occasional Tums as needed. He did have diarrhea the week before planned procedure. He underwent prep with magnesium citrate and states that he vomited this. . [facility] Disclaimer: The information contained in this section may have been updated after the patient was seen, as this information can be updated by other users. Medical History Arthritis COPD (chronic obstructive pulmonary disease) Duodenal ulcer with perforation GERD (gastroesophageal reflux disease) History of infection cat bite to right hand HTN (hypertension) Perforated abdominal viscus Surgical perforation of duodenum duodenal ulcer Surgical History History of cervical spinal surgery plate inserted History of colonoscopy Family History Grandfather History of cancer Father History of diabetes mellitus Social History Smoking Status: Current every day smoker tobacco type: cigarettes packs per day: 1 second hand exposure: No alcohol intake: never substance use type: denies use current occupational status: disabled Travel in the last 8 weeks: None household members: spouse housing: house current occupational exposures/hazards: No caffeine: No Have you lived/traveled outside [place] in past 30 days?: No Contact w/someone who lives/traveled outside [place] past 30 days?: No Exposure to someone with infectious disease in past 14 days?: No Do you have a fever (greater than 100.4 F or 38 C)?: No Have you tested positive for COVID-19: No Exposed to someone with COVID-19 in past 14 days?: No Do you have a sore throat?: No Do you have a cough?: No Do you have any weakness?: No Do you have any diarrhea?: No Are you experiencing any unusual bleeding?: No Do you have any muscle aches/pain?: No Do you have any abdominal pain?: No Are you experiencing loss of taste or smell?: No Other Medical History Have you received the Flu Vaccine for this season: No Have you received the Pneumonia Vaccine: Yes Meds Home Medications and Allergies Home Medications ?Medication ?Instructions ?Recorded ?Confirmed ?Type albuterol sulfate 90 mcg/actuation 2 puff inhalation QIDP PRN 02/22/18 12/06/24 History aerosol inhaler (Ventolin HFA) Shortness Of Breath bupropion HCl 300 mg 24 hr tablet, 300 mg PO DAILY MOOD 02/22/18 12/06/24 History extended release fluticasone propionate 50 2 spray intranasal DAILY ALLERGIES 02/22/18 12/06/24 History mcg/actuation nasal spray,suspension (Flonase Allergy Relief) amlodipine 10 mg tablet 10 mg PO DAILY Hypertension 04/29/22 12/06/24 History fexofenadine 180 mg tablet 180 mg PO DAILY Allergy symptoms 04/29/22 12/06/24 History hydrocodone 7.5 mg-acetaminophen 1 - 2 tab PO TID Pain 04/29/22 12/06/24 History 325 mg tablet tiotropium 2.5 mcg-olodaterol 2.5 2 puff inhalation DAILY Breathing 04/29/22 12/30/22 History mcg/actuation mist for inhalation problems venlafaxine 75 mg tablet,extended 75 mg PO DAILY MOOD 04/29/22 12/30/22 History release 24 hr pantoprazole 40 mg tablet,delayed 40 mg PO BID GERD #60 tabs 09/02/22 12/06/24 Rx release sod picosulf 10 mg-magnes 3.5 160 ml PO DAILY 2 doses #350 mL 04/24/23 Rx gram-citric 12 gram/160 mL oral solution (Clenpiq) peg 3350-electrolytes 236 240 ml PO Q10M #4,000 mL 05/06/23 Rx gram-22.74 gram-6.74 gram-5.86 gram solution (Golytely) New Prescriptions to Start Prescriptions: Allergies Allergy/AdvReac Type Severity Reaction Status Date / Time No Known Allergies Allergy Verified 10/18/24 12:25 Exam Data for Last 24 hours Vital signs and Labs for Last 24 Hours: Pulse Resp BP Pulse Ox O2 Del Method 108 H 18 179/108 H 100 Room Air 12/09/24 07:23 12/09/24 07:23 12/09/24 07:23 12/09/24 07:23 12/09/24 07:23 I & O for Last 24 hours: Intake & Output 12/06/24 12/07/24 12/08/24 12/09/24 11:59 11:59 11:59 11:59 Weight 130 lb Constitutional Constitutional: no acute distress *Routine HEENT Exam Head: Present normocephalic Eye: Present EOMI and PERRL ENT: Present mucous membranes moist *Routine Neck Exam Neck: Present supple; Absent lymphadenopathy *Routine Respiratory Exam Respiratory: Present CTA bilaterally *Routine Cardiovascular Exam Cardiovascular: Present RRR *Routine Abdominal Exam Abdominal: Present soft and normoactive bowel sounds; Absent tenderness *Routine Rectal Exam Rectal:: deferred *Routine Genitalia Exam Genitalia:: deferred *Routine Extremities Exam Extremities: Absent cyanosis, clubbing or edema *Routine Skin Exam Skin: Present warm; Absent rash *Routine Neurological Exam Neurological: Present alert and oriented X3 Assessment and Plan *Assessment and plan (1) Intestinal metaplasia of cardia of stomach: Status: Acute Category: Medical Code(s): K31.A0 - Gastric intestinal metaplasia, unspecified (2) Colon polyps: Status: Acute Category: Medical Code(s): K63.5 - Polyp of colon Plan Plan to proceed with EGD and colonoscopy
--- NOTE | 2024-12-09 07:56 | EXP.ANES.CKL ---
[facility] Disclaimer: The information contained in this section may have been updated after the patient was seen, as this information can be updated by other users. Medical History Arthritis COPD (chronic obstructive pulmonary disease) Duodenal ulcer with perforation GERD (gastroesophageal reflux disease) History of infection cat bite to right hand HTN (hypertension) Perforated abdominal viscus Surgical perforation of duodenum duodenal ulcer Surgical History History of cervical spinal surgery plate inserted History of colonoscopy Family History Grandfather History of cancer Father History of diabetes mellitus Social History Smoking Status: Current every day smoker tobacco type: cigarettes packs per day: 1 second hand exposure: No alcohol intake: never substance use type: denies use current occupational status: disabled Travel in the last 8 weeks: None household members: spouse housing: house current occupational exposures/hazards: No caffeine: No Have you lived/traveled outside [place] in past 30 days?: No Contact w/someone who lives/traveled outside [place] past 30 days?: No Exposure to someone with infectious disease in past 14 days?: No Do you have a fever (greater than 100.4 F or 38 C)?: No Have you tested positive for COVID-19: No Exposed to someone with COVID-19 in past 14 days?: No Do you have a sore throat?: No Do you have a cough?: No Do you have any weakness?: No Do you have any diarrhea?: No Are you experiencing any unusual bleeding?: No Do you have any muscle aches/pain?: No Do you have any abdominal pain?: No Are you experiencing loss of taste or smell?: No [facility] Anesthesia Checklist Patient Identification Patient Identification: Arm Band Structural Data Admitted From: Home Planned Operative Procedure/s: Colonoscopy Consent for Planned Operative Procedure(s) Verified: Yes Verified Documents: Surgical Consent and History and Physical NPO Status Verified Time NPO: 00:00 Additional verifications Anesthesia Reactions: No Hx Blood Transfusions: No Blood Transfusion Reaction: No Airway Assessment Mallampati Score:: Class II C-Spine Mobility Assessed: Yes TMJ Mobility Assessed: Yes Dentition: Poor Dentition Neurological Assessment Level of Consciousness: Awake, Alert and Appropriate Anesthesia Plan Anesthesia Risk discussed: Yes Anesthesia Plan: Verified ASA Class: II Anesthesia Type: MAC
[2024-12-09 08:06] VITALS: O2SAT 100
--- NOTE | 2024-12-09 08:27 | P.DS_ITS ---
HPI HPI HPI: Patient is a 59-year-old male who presents for follow-up colonoscopy. I had seen him in the past for perforated duodenal bulb ulcer and he presented with peritonitis and underwent laparotomy on 04/28/2022. He had a follow-up EGD done on 08/22/2022. He also underwent colonoscopy at that time. He had previous colonoscopy [place] [address] Fitz Santos and had a tubular adenoma and a serrated adenoma removed. Colonoscopy on 08/22/2022 revealed too numerous to count polyps. Pathology at that time revealed findings of intestinal metaplasia. Polyps revealed numerous tubular adenomas and mostly sessile serrated polyps. Recommendations given this pathology was for repeat colonoscopy in 9 months after his colonoscopy on 08/22/2022. Also, given his history of perforated ulcer and intestinal metaplasia I recommend continuation of proton pump inhibitors and repeat upper endoscopy in August 2024. He has not been taking proton pump inhibitors but states that he takes occasional Tums as needed. He did have diarrhea the week before planned procedure. He underwent prep with magnesium citrate and states that he vomited this. . Exam Data for Last 24 hours Vital signs and Labs for Last 24 Hours: Pulse Resp BP Pulse Ox O2 Del Method O2 Flow Rate 108 H 18 179/108 H 100 Nasal Cannula 5 12/09/24 07:23 12/09/24 07:23 12/09/24 07:23 12/09/24 07:23 12/09/24 08:06 12/09/24 08:06 I & O for Last 24 hours: Intake & Output 12/06/24 12/07/24 12/08/24 12/09/24 11:59 11:59 11:59 11:59 Weight 130 lb DS: Diagnosis Discharge Diagnosis (1) Intestinal metaplasia of cardia of stomach: Status: Acute Code(s): K31.A0 - Gastric intestinal metaplasia, unspecified (2) Colon polyps: Status: Acute Code(s): K63.5 - Polyp of colon Meds Home Medications and Allergies Home Medications ?Medication ?Instructions ?Recorded ?Confirmed ?Type albuterol sulfate 90 mcg/actuation 2 puff inhalation QIDP PRN 02/22/18 12/06/24 History aerosol inhaler (Ventolin HFA) Shortness Of Breath bupropion HCl 300 mg 24 hr tablet, 300 mg PO DAILY MOOD 02/22/18 12/06/24 History extended release fluticasone propionate 50 2 spray intranasal DAILY ALLERGIES 02/22/18 12/06/24 History mcg/actuation nasal spray,suspension (Flonase Allergy Relief) amlodipine 10 mg tablet 10 mg PO DAILY Hypertension 04/29/22 12/06/24 History fexofenadine 180 mg tablet 180 mg PO DAILY Allergy symptoms 04/29/22 12/06/24 History hydrocodone 7.5 mg-acetaminophen 1 - 2 tab PO TID Pain 04/29/22 12/06/24 History 325 mg tablet tiotropium 2.5 mcg-olodaterol 2.5 2 puff inhalation DAILY Breathing 04/29/22 12/30/22 History mcg/actuation mist for inhalation problems venlafaxine 75 mg tablet,extended 75 mg PO DAILY MOOD 04/29/22 12/30/22 History release 24 hr pantoprazole 40 mg tablet,delayed 40 mg PO BID GERD #60 tabs 09/02/22 12/06/24 Rx release sod picosulf 10 mg-magnes 3.5 160 ml PO DAILY 2 doses #350 mL 04/24/23 Rx gram-citric 12 gram/160 mL oral solution (Clenpiq) peg 3350-electrolytes 236 240 ml PO Q10M #4,000 mL 05/06/23 Rx gram-22.74 gram-6.74 gram-5.86 gram solution (Golytely) New Prescriptions to Start Prescriptions: Allergies Allergy/AdvReac Type Severity Reaction Status Date / Time No Known Allergies Allergy Verified 10/18/24 12:25 Discharge Plan Disposition Patient Disposition: Home, Self-Care Follow up Plan Prescriptions/Medication Reconciliation: No Action fluticasone propionate [Flonase Allergy Relief] 50 mcg/actuation spray,suspension 2 spray intranasal DAILY bupropion HCl 300 mg tablet extended release 24 hr 300 mg PO DAILY albuterol sulfate [Ventolin HFA] 90 mcg/actuation HFA aerosol inhaler 2 puff inhalation QIDP PRN (Reason: Shortness Of Breath) pantoprazole 40 mg tablet,delayed release (DR/EC) 40 mg PO BID Qty: 60 5RF Clenpiq 10 mg-3.5 gram- 12 gram/160 mL solution 160 ml PO DAILY Qty: 350 0RF Rx Instructions: take first dose at 5-9PM evening before colonoscopy; 2nd dose the next day ap proximately 5 hrs before colonoscopy peg 3350-electrolytes [Golytely] 236-22.74-6.74 -5.86 gram recon soln 240 ml PO Q10M Qty: 4000 0RF Rx Instructions: until fecal effluent is clear fexofenadine 180 MG tablet 180 mg PO DAILY amlodipine 10 MG tablet 10 mg PO DAILY hydrocodone-acetaminophen 1 EACH tablet 1 - 2 tab PO TID venlafaxine 75 MG tablet extended release 24hr 75 mg PO DAILY tiotropium-olodaterol 4 GM mist 2 puff IH DAILY Providers Primary Care Provider: Ede Bone Attending Provider: Garrett Read
--- NOTE | 2024-12-09 08:28 | P.PCN_ITS ---
Procedure: Date: 12/09/24 Patient Date of :: 1965 Procedure Performed:: Esophagogastroduodenoscopy with biopsies Total colonoscopy to terminal ileum with multiple polypectomy using snare and biopsy . Indications:: Patient is a 59-year-old male who presents for follow-up colonoscopy. I had seen him in the past for perforated duodenal bulb ulcer and he presented with peritonitis and underwent laparotomy on 04/28/2022. He had a follow-up EGD done on 08/22/2022. He also underwent colonoscopy at that time. He had previous colonoscopy in [address] Fitz Santos and had a tubular adenoma and a serr ated adenoma removed. Colonoscopy on 08/22/2022 revealed too numerous to count polyps. Pathology at that time revealed findings of intestinal metaplasia. Polyps revealed numerous tubular adenomas and mostly sessile serrated polyps. Recommendations given this pathology was for repeat colonoscopy in 9 months after his colonoscopy on 08/22/2022. Also, given his history of perforated ulcer and intestinal metaplasia I recommend continuation of proton pump inhibitors and repeat upper endoscopy in August 2024. He has not been taking proton pump inhibitors but states that he takes occasional Tums as needed. He did have diarrhea the week before planned procedure. He underwent prep with magnesium citrate and states that he vomited this. . Performing Provider:: Garrett Read MD Referring Provider:: Ede Bone MD Sedation:: MAC sedation Procedure:: Patient history was obtained and appropriate physical examination was performed. Patient's medications and allergies were reviewed. Informed consent was obtained after explaining the benefits, alternatives, and risks of the procedure including, but not limited to, bleeding, perforation, missed lesions, and adverse reaction to anesthesia medications. Patient was transported to endoscopy procedure room. Patient was connected to monitoring devices. Throughout the procedure the patient's blood pressure, pulse, and oxygen saturations were monitored continuously. Patient identification and planned procedure were verified by the staff. Patient was positioned in lateral decubitus position. Attention was first turned to upper endoscopy. Olympus endoscope was inserted via the oropharynx. Esophagus was cannulated. There were findings of mild esophagitis throughout. In the distal esophagus there were findings potentially consistent with Julien's esophagus between 32 cm and 40 cm. Gastroesophageal junction was at 40 cm. Stomach was cannulated and insufflated. Retroflexion revealed a small sliding hiatal hernia. There was diffuse gastritis/gastropathy. There were several polyps consistent with fundic gland polyps with some mild heme material consistent with slow oozing. There were rare changes consistent with previous ulcer at the pyloric channel. Pylorus was traversed. There was mild duodenitis. There was a polyp-like lesion within the duodenal bulb which was biopsied. Endoscope was withdrawn to the stomach. Biopsy was obtained of inflamed polyp. Endoscope was withdrawn into the distal esophagus and a couple biopsies were obtained at the gastroesophageal junction. Numerous biopsies were obtained in the distal esophagus specifying 32 cm, 34 cm, 36 cm, and 38 cm from the incisors to evaluate probable esophageal intestinal metaplasia. Stomach was desufflated and the endoscope was withdrawn. Digital anorectal exam was performed. Variable stiffness Olympus colonoscope was inserted and advanced under direct visualization to the cecum. Adequacy of the colonic preparation was noted. The colonoscope was advanced a short distance into the terminal ileum. Colonic preparation was fair and moderate visualization was achieved with high-volume trans colonoscopic irrigation and suctioning. On the ileocecal valve there was a diminutive polyp removed with biopsy forceps. At the hepatic flexure there was adenomatous appearing polyp and a couple of hyperplastic appearing polyps removed with biopsy forceps. In the descending colon there were several sessile polyps, diminutive, 1 of which was removed with cold snare and 3 removed with biopsy forceps. In the proximal sigmoid colon there was a diminutive polyp removed with biopsy forceps. Mid sigmoid colon there was a diminutive polyp removed with biopsy forceps. Rectosigmoid there were several tiny polyps removed with biopsy forceps. In the rectum there were a couple small polyps removed with biopsy forceps. Please note that only the more appreciable potential adenomatous polyps were removed as they were too numerous to count hyperplastic appearing polyps. Within the rectum retroflexion was performed. Colonoscope was then withdrawn. . 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 Fair colonic preparation Numerous small polyps as noted above Sigmoid diverticulosis . Recommendations:: Follow-up on histopathology. Patient will need to maintain proton pump inhibitors. . Repeat colonoscopy pending pathology. Given prior history likely repeat colonoscopy 1 to 2 years however this will be pending pathology. May need Suprep or Sutab's. . Complications:: None immediately apparent Estimated blood obtained (mL): 3 Colonoscopy Component Colonoscopy Component Was a colonoscopy performed during today's procedure?: Yes Recommended follow up colonoscopy of at least 10 years?: No If no, follow up colonoscopy recommended in ___ years?: See above Reason for not recommending >/= 10 yr follow-up interval?: See above
[2024-12-09 09:46] VITALS: PULSE 93; RESP 16; TEMP 36.4; O2SAT 94
[2024-12-09 09:56] VITALS: BP 88/51; PULSE 92; RESP 16; TEMP 36.4; O2SAT 93
[2024-12-09 10:06] VITALS: BP 91/60; PULSE 91; RESP 16; TEMP 36.4; O2SAT 96
[2024-12-09 10:16] VITALS: BP 124/60; PULSE 87; RESP 16; TEMP 36.4; O2SAT 99
== END | disposition home or self-care (01) ==
PROVIDERS: PCP Internal Medicine Adolescent Medicine; Visit Provider Surgery
PROC: 0DJD8ZZ Inspection of Lower Intestinal Tract, Via Natural or Artificial Opening Endoscopic (ICD-10-PCS; CPT 43239; principal; 2024-12-09 08:30)
DX: K29.80 Duodenitis without bleeding (principal); K44.9 Diaphragmatic hernia without obstruction or gangrene; K20.90 Esophagitis, unspecified without bleeding; K31.7 Polyp of stomach and duodenum; K29.70 Gastritis, unspecified, without bleeding; K31.9 Disease of stomach and duodenum, unspecified; K63.5 Polyp of colon; D12.3 Benign neoplasm of transverse colon; D12.4 Benign neoplasm of descending colon; K62.1 Rectal polyp; K57.30 Diverticulosis of large intestine without perforation or abscess without bleeding; K31.A0 Gastric intestinal metaplasia, unspecified; Z86.0101 Personal history of adenomatous and serrated colon polyps
CPT/HCPCS: 43239; 45380; 45385; J2704

== ENCOUNTER 2025-05-29 12:59 | Outpatient (CLI) | payer MEDICARE, SELFPAY ==
--- OUTSIDE RECORDS SUMMARY | 2025-05-29 13:01 | XMS_ITS | Clinical Summary ---
Author Organization [facility] Address [address] [place] [address] Care Team Providers Care Telephone Operator Chief Name Role Phone Ede Bone MD Primary Care Provider + [phone] Allergies No known active allergies Medications fexofenadine (Pari) 180 MG tablet Take 180 mg by mouth 1 (one) time each day. Active aspirin 81 MG EC tablet Take 81 mg by mouth 1 (one) time each day if needed. Active montelukast (Singulair) 10 MG tablet Take 10 mg by mouth every night. Active venlafaxine XR (Effexor-XR) 75 MG 24 hr capsule Take 75 mg by mouth 1 (one) time each day. Do not crush or chew. Active fluticasone (Flonase) 50 MCG/ACT nasal spray Administer 2 sprays into each nostril 1 (one) time each day if needed for rhinitis. Shake gently. Before first use, prime pump. After use, clean tip and replace cap. Active meloxicam (Mobic) 15 MG tablet Take 15 mg by mouth 1 (one) time each day. Active buPROPion XL (Wellbutrin XL) 300 MG 24 hr tablet Take 300 mg by mouth 1 (one) time each day. Do not crush, chew, or split. Active Tiotropium [place] Monohydrate (Spiriva Respimat) 2.5 MCG/ACT inhaler Inhale 2 puffs 1 (one) time each day. Active amLODIPine (Norvasc) 5 MG tablet Take 1 tablet (5 mg total) by mouth 1 (one) time each day. 30 tablet 11 2 Active chlorhexidine (Hibiclens) 4 % external liquidIndication s:Abscess, hand Apply topically 1 (one) time each day if needed for wound care. Use as directly 500 mL 1 2 Active albuterol 108 (90 Base) MCG/ACT inhaler 9 Active Aspirin Buf,CaCarb-MgCar b-MgO, 81 MG tablet 9 Active bisoprolol (Zebeta) 5 MG tablet 9 Active buPROPion XL (Wellbutrin XL) 300 MG 24 hr tablet 9 Active fluticasone (Flonase) 50 MCG/ACT nasal spray 9 Active HYDROcodone-acet aminophen ([place]) 5-325 MG tablet 9 Active lansoprazole (Prevacid) [address] capsule 9 Active meloxicam (Mobic) 15 MG tablet 9 Active montelukast (Singulair) 10 MG tablet 9 Active hydrOXYzine pamoate (Vistaril) 25 MG capsuleIndicatio ns:Sepsis due to cellulitis (CMS/HCC),Allerg ic contact dermatitis due to adhesives Take 1 capsule (25 mg total) by mouth 3 (three) times a day if needed for itching for up to 10 days. 30 capsule 2 Active Active Problems Problem Noted Date Diagnosed Date Abscess, hand 02/03/2022 Assessment & Plan (03/27/2022 11:07 PM EDT): Right index finger tenosynovitis - Cultures negative - Completed 5 weeks of IV antibiotic therapy for treatment: ceftriaxone and 4 weeks flagyl - Intermittent elevation of inflammatory markers. - Clinically, moderate improvement, not as expected - Obtained MRI right hand, will discuss with Hand surgery - Switched from ceftriaxone & flagyl -> daptomycin, cefepime and fragyl - Labs improved CRP decreased, edema/erythema improved - We have to remove the PICC line today, contact dermatitis insertion site, will transition to PO abx for now: augmentin and doxycicline, while we discuss with hand surgery. - RTC in 10-14 days. Assessment & Plan (03/11/2022 2:09 PM EDT): Right index finger tenosynovitis - Cultures negative - Completed 5 weeks of IV antibiotic therapy for treatment: ceftriaxone and 4 weeks flagyl - Intermittent elevation of inflammatory markers. - Clinically, moderate improvement, not as expected - will request a new MRI hand w/wo contrast - will continue with flagyl, switch ceftriaxone -> cefepime and add daptomycin thru next evaluation on 03/27, discussed with OPAT team, will obtain CK (added to labs obtained this morning) RTC on 03/27 Cat bite 01/31/2022 HTN (hypertension) 01/31/2022 Anxiety 01/31/2022 Fibromyalgia 01/31/2022 BPH (benign prostatic hyperplasia) 01/31/2022 Resolved Problems Problem Noted Date Diagnosed Date Resolved Date Sepsis due to cellulitis 01/31/2022 Swelling of right index finger 05/28/2025 Family History Medical History Relation Name Comments Diabetes Father Hypertension Father Conversions - Other Mother malignan t neoplasm of skin Other cancer Mother Relation Name Status Comments Father Mother Social History Tobacco Use Types Packs/Day Years Used Date Smoking Tobacco: Every Day Cigarettes Smokeless Tobacco: Never Tobacco Cessation:Ready to Q uit: Not Asked; Counseling Given: Not Answered Alcohol Use Standard Drinks/Week Comments Yes 0 (1 standard drink = 0.6 oz pur e alcohol) 2-3 beers daily PHQ-2 Answer Date Recorded Patient Health Questionnaire-2 Score 2 03/27/2022 Sex and Gender Information Value Date Recorded Sex Assigned at Not on file Legal Sex Male 8:42 PM EDT Gender Identity Not on file Sexual Orientation Not on file Last Filed Vital Signs Vital Sign Reading Time Taken Comments Blood Pressure 136/85 09/11/2022 8:38 AM EST Pulse 92 09/11/2022 8:38 AM EST Temperature 36.5 C (97.7 F) 03/27/2022 12:35 PM EDT Respiratory Rate 18 03/27/2022 12:35 PM EDT Oxygen Saturation 98% 09/11/2022 8:38 AM EST Inhaled Oxygen Concentration - - Weight 60.3 kg (133 lb) 09/11/2022 8:38 AM EST Height 182.9 cm (6') 09/11/2022 8:38 AM EST Body Mass Index 18.04 09/11/2022 8:38 AM EST Plan of Treatment Health Maintenance Due Date Last Done Comments [facility]-Medicare Annual Wellness (AWV) 1965 [facility]-/Child/Adol SDOH Screenings 1965 [facility]- SDOH Screenings 1981 [facility]-Adult SDOH Screenings 1981 [facility]-DTaP,Tdap,and Td Vaccine s (1 - Tdap) 1982 [facility]-Pneumococcal Vaccine: 50 + Years (1 of 2 - PCV) 1982 CT Colonography 2008 Colonoscopy 2008 FIT-DNA 2008 FIT 2008 FOBT 2008 Sigmoidoscopy 2008 [facility]-Colorectal Cancer Screening 2008 [facility]-Zoster Vaccines (1 of 2) 2013 [facility]-Depression Screening 03/27/2023 03/27/2022 [id number] Vaccine ( season) 2025 08/08/2021, 11/29/2020, 11/01/2020 [facility]-Influenza Vaccine (#1) 2025 07/04/2020 [facility]-RSV Vaccine: 60+ Years o r (1 - 1-dose 75+ series) 2038 [facility]-HIV Screening Completed 02/03/2022 [facility]-Hepatitis C Screening Completed 02/03/2022 HPV Vaccines Aged Out No longer eligi ble based on patient's age to complete this topic [facility]-HIB Vaccines Aged Out No longer e ligible based on patient's age to complete this topic [facility]-Hepatitis A Vaccines Aged Out No longer eligible based on patient's age to complete this topic [facility]-IPV Vaccines Aged Out No longer e ligible based on patient's age to complete this topic [facility]-Rotavirus Vaccines Aged Out No lo nger eligible based on patient's age to complete this topic Procedures Procedure Name Priority Date/Time Associated Diagnosis Comments HEPATITIS C ANTIBODY - ED W/REFLEX TO HCV QUANT PCR Routine 02/03/2022 3:55 AM EDT HIV 1/2 ANTIBODY/ANTIGEN SCREEN WITH REFLEX TO HIV I/II DIFFERENTIATION Routine 02/03/2022 3:55 AM EDT from Last 3 Months or Most Recently Relevant to Health Maintenance Results * HIV 1 & 2 Antibody/Antigen Screen (02/03/2022 3:55 AM EDT) HIV 1 & 2 Antibody/Anti gen Screen Nonreactive Nonreactive 02/03/2022 6:52 AM EDT [facility] Blood Venous blood specimen / Unknown Venipuncture / Unknown 02/03/2022 3:55 AM EDT 02/03/2022 4:30 AM EDT Virginia Banuelos MD LAB BLOOD ORDERABLES Final Result [facility] [address] [place] [address] * [place] Hepatitis C Antibody (02/03/2022 3:55 AM EDT) Pathologist [facility] Hepatitis C Antibody Negative Negative 02/03/2022 6:51 AM EDT [facility] Blood Venous blood specimen / Unknown Venipuncture / Unknown 02/03/2022 3:55 AM EDT 02/03/2022 4:30 AM EDT Virginia Banuelos MD LAB BLOOD ORDERABLES Final Result [facility] [address] [place] [address] from Last 3 Months or Most Recently Relevant to Health Maintenance Insurance MEDICARE Advance Directives * Full Code (Latest Code Status on File) Date Activated Date Inactivated Comments 02/04/2022 3:36 PM 02/10/2022 7:21 PM Question Answer Comments Patient has decision-making capacity? Yes Care Teams Telephone Operator Chief Relationship Specialty Start Date End Date Ede Bone MD [address] [place] [address] PCP - General 01/18/21
--- NOTE | 2025-05-29 13:30 | CT_ITS ---
FINAL REPORT TECHNIQUE: Thin section axial images were obtained through the paranasal sinuses without contrast. Reconstruction images were obtained from the axial data. Exam was performed using dose reduction techniques such as automated exposure control, adjustment of the mA and kV according to patient size, and use of iterative reconstruction technique. CLINICAL HISTORY: chronic sinusitis COMPARISON: None FINDINGS: There is mucoperiosteal thickening of the bilateral maxillary sinuses, right greater than left. Opacification of the bilateral ethmoid air cells and bilateral frontal sinuses is noted. There is very mild mucoperiosteal thickening of the sphenoid. There are no air-fluid levels. The maxillary infundibulum are occluded bilaterally by mucoperiosteal thickening. Right nasal septal deviation is noted. The mastoids are clear. Dental caries are noted in the posterior right maxillary and mandibular teeth. IMPRESSION: Findings of bilateral chronic sinusitis. Occlusion of the maxillary infundibulum bilaterally. Dental caries. Recommend dental consultation. Reviewed, Interpreted and Dictated by Ban Lucas MD Transcribed by Leisa Chapa Authenticated and [facility]
== END 2025-05-29 23:59 | disposition home or self-care (01) ==
LOC: RAD 12:59
PROVIDERS: PCP Internal Medicine Adolescent Medicine; Visit Provider Nurse Practitioner
DX: J32.9 Chronic sinusitis, unspecified (principal); K02.9 Dental caries, unspecified; J34.89 Other specified disorders of nose and nasal sinuses
CPT/HCPCS: 70486